=== PATIENT | female | born 1945 | race Caucasian/White ===

== ENCOUNTER 2016-05-27 22:25 | Emergency (ER) | payer BC ==
[~2016-05-27] VITALS: Ht 160 cm; Wt 74.8 kg
[~2016-05-27 22:25] MED LIST: ALLO100T PO; AMLO5TAB2 PO; ATO40T PO; CITA-73 PO; GABA300C8 PO; NOR10T PO; PANT1INJ3 PO; TRAZ50TA2 PO
[2016-05-28 01:28] LABS: Basophils # (auto) 0.1 uL; Basophils % (auto) 0.7 % (0.0-2.0); DEFINITIVE VIEW TRANSMISSION; Eosinophils # (auto) 0.1 uL; Eosinophils % (auto) 1.3 % (0.0-7.0); Hematocrit 23.8 % (36.0-46.0); Hemoglobin 7.6 g/dL (12.2-16.2); Lymphocytes # (auto) 0.5 uL; Lymphocytes % (auto) 5.2 % (10.0-50.0); Mean Corpuscular Hemoglobin 26.6 pg (28.0-32.0); Mean Corpuscular Hgb Conc. 31.9 g/dL (32.0-36.0); Mean Corpuscular Volume 83.4 fL (80.0-100.0); Mean Platelet Volume 6.8 fL (7.4-10.4); Monocytes # (auto) 0.5 uL; Monocytes % (auto) 5.1 % (0.0-12.0); Neutrophils # (auto) 9.2 uL; Neutrophils % (auto) 87.7 % (37.0-80.0); Platelet Count (auto) 415 10^3/uL (140-450); Red Cell Distribution Width 17.1 % (11.6-16.0); White Blood Cell 10.5 10^3/uL (4.4-10.8)
[2016-05-28] MEDS ORDERED: DEXAMETHASONE SOD PHOS 4 MG/1ML SDV INJ IV ONE (01:45)
[2016-05-28 01:48] LABS: Albumin 2.7 g/dL (3.4-5.0); Anion Gap 10 (5-15); Aspartate Aminotransferase 14 U/L (15-37); BUN/Creatinine Ratio 21.6; Blood Urea Nitrogen 43 mg/dL (7-18); Calcium 8.4 mg/dL (8.5-10.1); Carbon Dioxide 20 mmol/L (21-32); Chloride 107 mmol/L (98-107); GFR African American 32 mL/min; GFR Non-African American 26 mL/min; Glucose 151 mg/dL (74-106); Sodium 137 mmol/L (136-145)
[2016-05-28 01:53] LABS: Alkaline Phosphatase 258 U/L (45-117); Bilirubin, Total 0.3 mg/dL (0.2-1.0); Total Protein 7.2 g/dL (6.4-8.2)
[2016-05-28 02:11] LABS: Potassium 5.8 mmol/L (3.5-5.1)
[2016-05-28] MEDS ORDERED: SODIUM POLYSTYRENE SULF 15GM/60ML SUSP PO ONE (02:30)
[2016-05-28 03:34] VITALS: BP 111/59
== END 2016-05-28 03:43 | disposition short-term general hospital (02) ==
LOC: ER 22:37
DX: S02.82XA Fracture of other specified skull and facial bones, left side, initial encounter for closed fracture (principal); S00.81XA Abrasion of other part of head, initial encounter; I60.2 Nontraumatic subarachnoid hemorrhage from anterior communicating artery; M54.5 Low back pain; E11.22 Type 2 diabetes mellitus with diabetic chronic kidney disease; N18.9 Chronic kidney disease, unspecified; I12.9 Hypertensive chronic kidney disease with stage 1 through stage 4 chronic kidney disease, or unspecified chronic kidney disease; I25.2 Old myocardial infarction; I25.10 Atherosclerotic heart disease of native coronary artery without angina pectoris; I25.810 Atherosclerosis of coronary artery bypass graft(s) without angina pectoris; Z79.899 Other long term (current) drug therapy; W19.XXXA Unspecified fall, initial encounter; Y93.89 Activity, other specified; Y92.098 Other place in other non-institutional residence as the place of occurrence of the external cause; Y99.8 Other external cause status
CPT/HCPCS: 36415; 70450; 70486; 80053; 84484; 85025; 96374; 99285; J1100

== ENCOUNTER 2016-08-01 18:29 | Inpatient (IN) | payer BC ==
[~2016-08-01] VITALS: Ht 157.5 cm; Wt 71.5 kg
[~2016-08-01 18:29] MED LIST changes: +GABA-497 PO; -GABA300C8 PO
[2016-08-01] MEDS ORDERED: SODIUM CHLORIDE 0.9% 1,000 ML IV ONE ×2 (20:32→21:45)
[2016-08-01 21:39] LABS: Basophils # (auto) 0 uL; Basophils % (auto) 0.3 % (0.0-2.0); Eosinophils # (auto) 0 uL; Eosinophils % (auto) 0.2 % (0.0-7.0); Hematocrit 26.2 % (36.0-46.0); Hemoglobin 8.8 g/dL (12.2-16.2); Lymphocytes # (auto) 0.5 uL; Lymphocytes % (auto) 5.6 % (10.0-50.0); Mean Corpuscular Hemoglobin 27.4 pg (28.0-32.0); Mean Corpuscular Hgb Conc. 33.7 g/dL (32.0-36.0); Mean Corpuscular Volume 81.5 fL (80.0-100.0); Mean Platelet Volume 9.5 fL (7.4-10.4); Monocytes # (auto) 0.4 uL; Monocytes % (auto) 4.6 % (0.0-12.0); Neutrophils # (auto) 7.3 uL; Neutrophils % (auto) 89.3 % (37.0-80.0); Platelet Count (auto) 341 10^3/uL (140-450); Red Cell Distribution Width 18.6 % (11.6-16.0); White Blood Cell 8.2 10^3/uL (4.4-10.8)
[2016-08-01] MEDS ORDERED: MORPHINE SULF INJ 2 MG/ML SYRINGE 1ML IV PRN (21:45)
[2016-08-01] MEDS ORDERED: ONDANSETRON HCL 4 MG/2 ML VIAL IV PRN (21:45)
[2016-08-01] MEDS ORDERED: DEXTROSE (50%) 50ML SYRG IV PRN (21:45)
[2016-08-01] MEDS ORDERED: PANTOPRAZOLE SODIUM 40 MG/10 ML VIAL IV ONE (22:00)
[2016-08-01] MEDS: SODIUM CHLORIDE 0.9% 1,000 ML IV SCH (22:30)
[2016-08-01 22:41] LABS: INR 1.01 (0.9-1.15); Partial Thromboplastin Time 27.6 sec (22.64-33.71)
[2016-08-01] MEDS: GABAPENTIN 400 MG CAP PO SCH (23:00)
[2016-08-01] MEDS: MIRTAZAPINE 30 MG TAB PO SCH (23:00)
[2016-08-01] MEDS: SUCRALFATE 1 GM TAB PO SCH (23:00)
[2016-08-01] MEDS: traZODone HCL 50 MG TAB PO SCH (23:00)
[2016-08-01 23:02] LABS: Albumin 3.4 g/dL (3.4-5.0); Alkaline Phosphatase 179 U/L (45-117); Anion Gap 8 (5-15); Aspartate Aminotransferase 27 U/L (15-37); BUN/Creatinine Ratio 36.2; Bilirubin, Total 0.3 mg/dL (0.2-1.0); Blood Urea Nitrogen 54 mg/dL (7-18); Calcium 8.7 mg/dL (8.5-10.1); Carbon Dioxide 18 mmol/L (21-32); Chloride 112 mmol/L (98-107); GFR African American 44 mL/min; GFR Non-African American 37 mL/min; Glucose 146 mg/dL (74-106); Magnesium 2.3 mg/dL (1.6-2.6); Potassium 4.7 mmol/L (3.5-5.1); Sodium 138 mmol/L (136-145); Total Protein 7.2 g/dL (6.4-8.2)
[2016-08-01] MEDS: InsuLIN REG 1unit/0.01ml Soln (100units/ml) SC SCH (23:42)
[2016-08-01] MEDS: ACCU-CHEK COMFORT CURVE STRIP VI SCH (23:42)
[2016-08-02] VITALS: BP 115/56
[2016-08-02 05:17] VITALS: BP 116/59
[2016-08-02] MEDS: GABAPENTIN 400 MG CAP PO SCH ×3 (05:58→21:50)
[2016-08-02] MEDS: InsuLIN REG 1unit/0.01ml Soln (100units/ml) SC SCH ×3 (05:58→18:32)
[2016-08-02] MEDS: ACCU-CHEK COMFORT CURVE STRIP VI SCH ×3 (05:58→18:31)
[2016-08-02] MEDS: SUCRALFATE 1 GM TAB PO SCH ×4 (06:48→21:50)
[2016-08-02 08:50] VITALS: BP 104/58
[2016-08-02] MEDS: SERTRALINE HCL 50 MG TAB PO SCH (10:50)
[2016-08-02] MEDS: PANTOPRAZOLE SODIUM 40 MG/10 ML VIAL IV SCH (10:50)
[2016-08-02] MEDS: amLODIPine BESYLATE 5 MG TAB PO SCH (10:51)
[2016-08-02] MEDS: SODIUM CHLORIDE 0.9% 1,000 ML IV SCH (11:05)
[2016-08-02 13:00] VITALS: BP 121/51
[2016-08-02 14:41] LABS: Urine RBC None Seen /hpf (0 - 4)
[2016-08-02 14:52] LABS: Urine Bilirubin Negative (Negative); Urine Color Yellow (Yellow); Urine Glucose Normal (Normal); Urine Ketone Negative (Negative); Urine Urobilinogen Normal (Negative); Urine WBC Clumps PRESENT /hpf (None Seen)
[2016-08-02 15:06] LABS: Urine Blood 2+ /uL (Negative); Urine Nitrite POSITIVE (Negative); Urine Squamous Epithelial Cell FEW /hpf (<5)
[2016-08-02 16:51] VITALS: BP 106/56
[2016-08-02] MEDS: HYDROcodone-ACET 5/325MG TAB PO PRN ×2 (17:01→21:50)
[2016-08-02] MEDS: traZODone HCL 50 MG TAB PO SCH (21:50)
[2016-08-02] MEDS: MIRTAZAPINE 30 MG TAB PO SCH (21:50)
[2016-08-02 22:00] VITALS: BP 99/60
[2016-08-03] MEDS: SODIUM CHLORIDE 0.9% 1,000 ML IV SCH ×2 (00:01→13:47)
[2016-08-03] MEDS: ACCU-CHEK COMFORT CURVE STRIP VI SCH ×4 (00:01→17:55)
[2016-08-03] MEDS: InsuLIN REG 1unit/0.01ml Soln (100units/ml) SC SCH ×4 (06:00→17:56)
[2016-08-03 06:02] VITALS: BP 118/64
[2016-08-03] MEDS: SUCRALFATE 1 GM TAB PO SCH ×3 (06:28→17:31)
[2016-08-03] MEDS: GABAPENTIN 400 MG CAP PO SCH ×2 (06:28→13:49)
[2016-08-03] MEDS: HYDROcodone-ACET 5/325MG TAB PO PRN ×3 (06:29→18:02)
[2016-08-03 08:00] VITALS: BP 114/57
[2016-08-03] MEDS: MORPHINE SULF INJ 2 MG/ML SYRINGE 1ML IV PRN ×2 (08:29→14:35)
[2016-08-03 08:55] VITALS: BP 114/57
[2016-08-03] MEDS: SERTRALINE HCL 50 MG TAB PO SCH (10:07)
[2016-08-03] MEDS: PANTOPRAZOLE SODIUM 40 MG/10 ML VIAL IV SCH (10:07)
[2016-08-03] MEDS: amLODIPine BESYLATE 5 MG TAB PO SCH (10:08)
[2016-08-03 13:00] VITALS: BP 124/74
[2016-08-03] MEDS ORDERED: IBUP800T24 PO (13:35)
[2016-08-03] MEDS ORDERED: CEL100T PO (13:35)
[2016-08-03] MEDS ORDERED: PANT40T PO (13:35)
[2016-08-03] MEDS ORDERED: GABA-497 PO (13:35)
[2016-08-03] MEDS ORDERED: CIPR-217 PO (13:38)
[2016-08-03] MEDS ORDERED: LEVOFLOXACIN 750MG 150 ML IV ONE (13:45)
[2016-08-03 15:45] VITALS: BP 114/57
[2016-08-03 17:00] VITALS: BP 120/70
[2016-08-03] MEDS ORDERED: ATORVASTATIN 20 MG TAB PO SCH (22:00)
== END 2016-08-03 19:45 | disposition home or self-care (01) | DRG 563 ==
LOC: EDUNIT# 18:29 → EDBD 18:29 → ER 18:32 → OVERFLOW 18:33 → WEST WING 23:32
PROVIDERS: ADMIT Family Medicine; ATTEND Hospitalist
DX: S42.212A Unspecified displaced fracture of surgical neck of left humerus, initial encounter for closed fracture (principal); I13.0 Hypertensive heart and chronic kidney disease with heart failure and stage 1 through stage 4 chronic kidney disease, or unspecified chronic kidney disease; F11.20 Opioid dependence, uncomplicated; N39.0 Urinary tract infection, site not specified; I25.10 Atherosclerotic heart disease of native coronary artery without angina pectoris; E78.5 Hyperlipidemia, unspecified; I50.9 Heart failure, unspecified; D64.9 Anemia, unspecified; E11.22 Type 2 diabetes mellitus with diabetic chronic kidney disease; E78.00 Pure hypercholesterolemia, unspecified; G47.00 Insomnia, unspecified; G89.4 Chronic pain syndrome; M10.9 Gout, unspecified; N18.2 Chronic kidney disease, stage 2 (mild); W01.0XXA Fall on same level from slipping, tripping and stumbling without subsequent striking against object, initial encounter; Z95.1 Presence of aortocoronary bypass graft; I25.2 Old myocardial infarction; Y93.89 Activity, other specified; Y92.098 Other place in other non-institutional residence as the place of occurrence of the external cause; Y99.8 Other external cause status; Z90.49 Acquired absence of other specified parts of digestive tract; Z90.710 Acquired absence of both cervix and uterus
CPT/HCPCS: 36415; 70450; 73030; 80053; 81001; 82962; 83036; 83735; 84484; 85025; 85610; 85730; 86850; 86870; 86900; 86901; 87081; 93005; 93306; 94761; 96374; C9113; J1815; J1956

== ENCOUNTER 2016-10-07 04:34 | Inpatient (IN) | payer BC ==
[~2016-10-07] VITALS: Ht 157.5 cm; Wt 68.4 kg
[~2016-10-07 04:34] MED LIST changes: +CEL100T PO; +CIPR-217 PO; -NOR10T PO; -PANT1INJ3 PO; +PANT40T PO; -TRAZ50TA2 PO
[2016-10-07] MEDS ORDERED: SODIUM CHLORIDE 0.9% 500 ML IV ONE (06:00)
[2016-10-07 06:17] LABS: Basophils # (auto) 0 uL; Basophils % (auto) 0.3 % (0.0-2.0); CONDITION Y; Eosinophils # (auto) 0.2 uL; Eosinophils % (auto) 1.6 % (0.0-7.0); Hematocrit 32.1 % (36.0-46.0); Lymphocytes # (auto) 0.5 uL; Lymphocytes % (auto) 5.5 % (10.0-50.0); Mean Corpuscular Hemoglobin 29.3 pg (28.0-32.0); Mean Corpuscular Hgb Conc. 34.2 g/dL (32.0-36.0); Mean Corpuscular Volume 85.7 fL (80.0-100.0); Mean Platelet Volume 8.7 fL (7.4-10.4); Monocytes # (auto) 0.5 uL; Monocytes % (auto) 5.2 % (0.0-12.0); Neutrophils # (auto) 8.7 uL; Neutrophils % (auto) 87.4 % (37.0-80.0); Platelet Count (auto) 325 10^3/uL (140-450); Red Cell Distribution Width 16.7 % (11.6-16.0)
[2016-10-07 06:28] LABS: Prothrombin Time 10.9 sec (9.37-12.3)
[2016-10-07 06:45] LABS: Urine Bilirubin Negative (Negative); Urine Blood TRACE /uL (Negative); Urine Color PINK (Yellow); Urine Glucose Normal (Normal); Urine Granular Cast MOD /lpf (0); Urine Hyaline Cast MANY /lpf (0 - 2); Urine Ketone Negative (Negative); Urine Mucus FEW (None Seen); Urine Nitrite Negative (Negative); Urine RBC 9 /hpf (0 - 4); Urine Squamous Epithelial Cell MANY /hpf (<5)
[2016-10-07 06:49] LABS: Chloride 106 mmol/L (98-107); Potassium 4.8 mmol/L (3.5-5.1); Sodium 136 mmol/L (136-145)
[2016-10-07 06:54] LABS: Albumin 3.7 g/dL (3.4-5.0); Anion Gap 13 (5-15); Aspartate Aminotransferase 11 U/L (15-37); BUN/Creatinine Ratio 17.6; Blood Urea Nitrogen 48 mg/dL (7-18); Calcium 8.8 mg/dL (8.5-10.1); Carbon Dioxide 17 mmol/L (21-32); GFR African American 22 mL/min; GFR Non-African American 18 mL/min; Glucose 156 mg/dL (74-106)
[2016-10-07 06:58] LABS: Alkaline Phosphatase 224 U/L (45-117); Bilirubin, Total 0.2 mg/dL (0.2-1.0)
[2016-10-07] MEDS ORDERED: cefTRIAXone 1GM/50ML D5W 50 ML IV ONE (07:00)
[2016-10-07] MEDS ORDERED: SODIUM CHLORIDE 0.9% 1,000 ML IV ONE (07:30)
[2016-10-07] MEDS ORDERED: DEXTROSE (50%) 50ML SYRG IV PRN (07:30)
[2016-10-07] MEDS ORDERED: ONDANSETRON HCL 4 MG/2 ML VIAL IV PRN (07:45)
[2016-10-07] MEDS ORDERED: MORPHINE SULF INJ 2 MG/ML SYRINGE 1ML IV PRN (07:45)
[2016-10-07] MEDS ORDERED: LACTULOSE 20Gm/30ML SOLN PO PRN (07:45)
[2016-10-07] MEDS ORDERED: NITROGLYCERIN 0.4 MG SL TAB SL PRN (07:45)
[2016-10-07 09:59] VITALS: BP 99/58
[2016-10-07] MEDS: amLODIPine BESYLATE 5 MG TAB PO SCH (10:00)
[2016-10-07] MEDS: GABAPENTIN 400 MG CAP PO SCH ×2 (10:14→21:23)
[2016-10-07] MEDS: PANTOPRAZOLE 40 MG/10 ML VIAL IV SCH (10:14)
[2016-10-07] MEDS: ENOXAPARIN SOD 30 MG/0.3 ML SYRINGE SC SCH (10:14)
[2016-10-07] MEDS: HYDROcodone-ACET 5/325MG TAB PO PRN ×2 (10:15→17:26)
[2016-10-07] MEDS: CELECOXIB 100 MG CAP PO SCH ×2 (10:15→21:23)
[2016-10-07] MEDS: SERTRALINE HCL 50 MG TAB PO SCH (10:15)
[2016-10-07] MEDS: SUCRALFATE 1 GM TAB PO SCH ×3 (11:30→21:23)
[2016-10-07] MEDS: InsuLIN REG 1unit/0.01ml Soln (100units/ml) SC SCH ×2 (12:00→18:00)
[2016-10-07] MEDS: ACCU-CHEK COMFORT CURVE STRIP VI SCH ×2 (12:00→18:00)
[2016-10-07 18:02] VITALS: BP 85/52
[2016-10-07 18:24] LABS: Calcium 8.2 mg/dL (8.5-10.1); Magnesium 2.3 mg/dL (1.6-2.6); Potassium 4.5 mmol/L (3.5-5.1)
[2016-10-07 18:28] LABS: BUN/Creatinine Ratio 25.8
[2016-10-07 22:00] VITALS: BP 107/50
[2016-10-07] MEDS ORDERED: traZODone HCL 50 MG TAB PO SCH (22:00)
[2016-10-07] MEDS ORDERED: MIRTAZAPINE 30 MG TAB PO SCH (22:00)
[2016-10-08] MEDS: ACCU-CHEK COMFORT CURVE STRIP VI SCH ×4 (00:15→17:27)
[2016-10-08] MEDS: HYDROcodone-ACET 5/325MG TAB PO PRN ×3 (04:12→17:21)
[2016-10-08 05:00] VITALS: BP 126/46
[2016-10-08 05:24] LABS: CONDITION Y; Hematocrit 30.6 % (36.0-46.0); Hemoglobin 10.3 g/dL (12.2-16.2); Mean Corpuscular Hemoglobin 28.7 pg (28.0-32.0); Mean Corpuscular Hgb Conc. 33.5 g/dL (32.0-36.0); Mean Corpuscular Volume 85.8 fL (80.0-100.0); Mean Platelet Volume 9.5 fL (7.4-10.4); Platelet Count (auto) 197 10^3/uL (140-450); Red Cell Distribution Width 16.7 % (11.6-16.0); SUSPECT SEE PRINTOUT; White Blood Cell 7.1 10^3/uL (4.4-10.8)
[2016-10-08 05:53] LABS: Albumin 2.6 g/dL (3.4-5.0); BUN/Creatinine Ratio 31.8; Calcium 8.2 mg/dL (8.5-10.1); Magnesium 2.2 mg/dL (1.6-2.6); Potassium 4.9 mmol/L (3.5-5.1)
[2016-10-08 05:55] LABS: Bilirubin, Total 0.2 mg/dL (0.2-1.0); Total Protein 6.2 g/dL (6.4-8.2)
[2016-10-08] MEDS: InsuLIN REG 1unit/0.01ml Soln (100units/ml) SC SCH ×4 (06:00→17:27)
[2016-10-08] MEDS: SUCRALFATE 1 GM TAB PO SCH ×3 (06:32→17:21)
[2016-10-08 07:00] LABS: Metamyelocytes % 0; Myelocytes % 0; Promyelocytes % 0; Reactive Lymphocytes 0
[2016-10-08] MEDS ORDERED: cefTRIAXone 1GM/50ML D5W 50 ML IV SCH (07:00)
[2016-10-08 07:04] LABS: Platelet Estimate Adequate
[2016-10-08 08:23] VITALS: BP 102/48
[2016-10-08] MEDS: PANTOPRAZOLE 40 MG/10 ML VIAL IV SCH (09:17)
[2016-10-08] MEDS: ENOXAPARIN SOD 30 MG/0.3 ML SYRINGE SC SCH (09:17)
[2016-10-08] MEDS: CELECOXIB 100 MG CAP PO SCH (09:18)
[2016-10-08] MEDS: SERTRALINE HCL 50 MG TAB PO SCH (09:18)
[2016-10-08] MEDS: GABAPENTIN 400 MG CAP PO SCH (09:18)
[2016-10-08] MEDS: amLODIPine BESYLATE 5 MG TAB PO SCH (09:20)
[2016-10-08] MEDS ORDERED: MUPIROCIN 2% OINT 22GM EACHNOSTRI SCH (10:33)
[2016-10-08 12:29] VITALS: BP 104/58
[2016-10-08 17:05] VITALS: BP 150/59
== END 2016-10-08 20:40 | DRG 683 ==
LOC: EDBD 04:34 → ER 04:37 → TELE 04:38 → TELE-E-ADS 09:37 → TELE-WESTW 11:23
PROVIDERS: ADMIT Family Medicine; ATTEND Family Medicine
DX: N17.9 Acute kidney failure, unspecified (principal); N39.0 Urinary tract infection, site not specified; I13.0 Hypertensive heart and chronic kidney disease with heart failure and stage 1 through stage 4 chronic kidney disease, or unspecified chronic kidney disease; E11.42 Type 2 diabetes mellitus with diabetic polyneuropathy; I50.9 Heart failure, unspecified; F32.9 Major depressive disorder, single episode, unspecified; N13.30 Unspecified hydronephrosis; G89.29 Other chronic pain; I25.10 Atherosclerotic heart disease of native coronary artery without angina pectoris; N18.9 Chronic kidney disease, unspecified; K21.9 Gastro-esophageal reflux disease without esophagitis; M10.9 Gout, unspecified; M25.511 Pain in right shoulder; M25.521 Pain in right elbow; Z79.899 Other long term (current) drug therapy; Z87.442 Personal history of urinary calculi; Z95.1 Presence of aortocoronary bypass graft; Z90.49 Acquired absence of other specified parts of digestive tract; Z90.710 Acquired absence of both cervix and uterus; I25.2 Old myocardial infarction
CPT/HCPCS: 36415; 70450; 71010; 73080; 76775; 80048; 80053; 81001; 82962; 83036; 83735; 84484; 85007; 85025; 85027; 85610; 85730; 87081; 93005; 94761; 96361; 96365; 97116; 97530; C9113; J0696; J1815

== ENCOUNTER 2016-10-28 20:08 | Emergency (ER) | payer BC ==
[~2016-10-28] VITALS: Ht 157.5 cm; Wt 63.5 kg
[~2016-10-28 20:08] MED LIST changes: -CIPR-217 PO; +HYDR-531 PO
[2016-10-28 20:20] VITALS: BP 144/80
[2016-10-28] MEDS ORDERED: ACETAMINOPHEN 325 MG TAB PO ONE ×2 (20:45)
[2016-10-28 21:11] LABS: Basophils # (auto) 0 uL; CONDITION Y; Eosinophils # (auto) 0.1 uL; Hematocrit 27.1 % (36.0-46.0); Hemoglobin 8.8 g/dL (12.2-16.2); Lymphocytes # (auto) 0.4 uL; Lymphocytes % (auto) 4.3 % (10.0-50.0); Mean Corpuscular Hemoglobin 27.3 pg (28.0-32.0); Mean Corpuscular Hgb Conc. 32.5 g/dL (32.0-36.0); Mean Corpuscular Volume 83.9 fL (80.0-100.0); Mean Platelet Volume 7.5 fL (7.4-10.4); Monocytes # (auto) 0.5 uL; Monocytes % (auto) 4.7 % (0.0-12.0); Platelet Count (auto) 479 10^3/uL (140-450); White Blood Cell 9.9 10^3/uL (4.4-10.8)
[2016-10-28 21:43] LABS: Albumin 2.6 g/dL (3.4-5.0); Alkaline Phosphatase 242 U/L (45-117); Anion Gap 11 (5-15); Aspartate Aminotransferase 5 U/L (15-37); BUN/Creatinine Ratio 30.8; Bilirubin, Total 0.5 mg/dL (0.2-1.0); Blood Urea Nitrogen 28 mg/dL (7-18); Calcium 9.3 mg/dL (8.5-10.1); Carbon Dioxide 20 mmol/L (21-32); Chloride 104 mmol/L (98-107); GFR African American 79 mL/min; GFR Non-African American 65 mL/min; Glucose 148 mg/dL (74-106); Magnesium 2.2 mg/dL (1.6-2.6); Potassium 4.1 mmol/L (3.5-5.1); Sodium 135 mmol/L (136-145); Total Protein 7.8 g/dL (6.4-8.2)
== END 2016-10-28 22:50 | disposition left against medical advice (07) ==
LOC: ER 20:17
DX: M79.602 Pain in left arm (principal); R53.1 Weakness; Z53.21 Procedure and treatment not carried out due to patient leaving prior to being seen by health care provider
CPT/HCPCS: 36415; 80053; 83605; 83735; 84484; 85025; 87040; 87077; 87186; 93005

== ENCOUNTER 2016-10-29 16:04 | Inpatient (IN) | payer BC ==
[~2016-10-29] VITALS: Ht 157.5 cm; Wt 64.5 kg
[2016-10-29] MEDS ORDERED: SODIUM CHLORIDE 0.9% 1,000 ML IV ONE (16:33)
[2016-10-29 17:09] LABS: Basophils # (auto) 0 uL; Basophils % (auto) 0.4 % (0.0-2.0); CONDITION Y; DEFINITIVE SEE PRINTOUT; Eosinophils # (auto) 0.1 uL; Hematocrit 25.2 % (36.0-46.0); Hemoglobin 8.3 g/dL (12.2-16.2); Lymphocytes # (auto) 0.6 uL; Lymphocytes % (auto) 7.9 % (10.0-50.0); Mean Corpuscular Hemoglobin 27.4 pg (28.0-32.0); Mean Corpuscular Hgb Conc. 32.8 g/dL (32.0-36.0); Mean Corpuscular Volume 83.5 fL (80.0-100.0); Mean Platelet Volume 7.4 fL (7.4-10.4); Monocytes # (auto) 0.6 uL; Monocytes % (auto) 8.3 % (0.0-12.0); Neutrophils # (auto) 5.9 uL; Neutrophils % (auto) 82.4 % (37.0-80.0); Platelet Count (auto) 408 10^3/uL (140-450); Red Cell Distribution Width 16.1 % (11.6-16.0); White Blood Cell 7.2 10^3/uL (4.4-10.8)
[2016-10-29 17:27] LABS: Albumin 2.5 g/dL (3.4-5.0); Anion Gap 11 (5-15); Aspartate Aminotransferase 7 U/L (15-37); BUN/Creatinine Ratio 24.3; Blood Urea Nitrogen 25 mg/dL (7-18); Calcium 9.1 mg/dL (8.5-10.1); Carbon Dioxide 20 mmol/L (21-32); Chloride 108 mmol/L (98-107); GFR African American 68 mL/min; GFR Non-African American 56 mL/min; Glucose 145 mg/dL (74-106); Magnesium 2.1 mg/dL (1.6-2.6); Potassium 3.9 mmol/L (3.5-5.1); Sodium 139 mmol/L (136-145)
[2016-10-29 17:32] LABS: Alkaline Phosphatase 218 U/L (45-117); Bilirubin, Total 0.4 mg/dL (0.2-1.0); Total Protein 7.3 g/dL (6.4-8.2)
[2016-10-29] MEDS ORDERED: KETOROLAC TROMETH 30 MG/ML 1ML VIAL IV ONE (17:45)
[2016-10-29] MEDS ORDERED: IOHEXOL 350 MG/ML 100ML IJ ONE (18:00)
[2016-10-29] MEDS ORDERED: PROMETHAZINE HCL 25 MG/ML 1ML IV ONE (18:45)
[2016-10-29] MEDS ORDERED: MORPHINE SULF INJ 2 MG/ML SYRINGE 1ML IV ONE (18:45)
[2016-10-29 19:06] LABS: Urine Bilirubin Negative (Negative); Urine Blood Negative /uL (Negative); Urine Color Yellow (Yellow); Urine Glucose Normal (Normal); Urine Ketone Negative (Negative); Urine Mucus FEW (None Seen); Urine Nitrite POSITIVE (Negative); Urine RBC 2 /hpf (0 - 4); Urine Squamous Epithelial Cell FEW /hpf (<5); Urine Urobilinogen Normal (Negative)
[2016-10-29] MEDS ORDERED: cefTRIAXone 1GM/50ML D5W 50 ML IV ONE (20:30)
[2016-10-29] MEDS ORDERED: ONDANSETRON HCL 4 MG/2 ML VIAL IV PRN (21:45)
[2016-10-29] MEDS ORDERED: DEXTROSE (50%) 50ML SYRG IV PRN (21:45)
[2016-10-29] MEDS ORDERED: LACTULOSE 20Gm/30ML SOLN PO PRN (21:45)
[2016-10-29] MEDS ORDERED: ENOXAPARIN SOD 60 MG/0.6 ML SYRINGE SC ONE (21:45)
[2016-10-29] MEDS ORDERED: HYDROcodone-ACET 5/325MG TAB PO PRN (21:45)
[2016-10-29] MEDS ORDERED: ACETAMINOPHEN 500 MG TAB PO PRN (21:45)
[2016-10-29] MEDS ORDERED: TEMAZEPAM 15 MG CAP PO PRN (21:45)
[2016-10-29] MEDS: InsuLIN REG 1unit/0.01ml Soln (100units/ml) SC SCH (22:00)
[2016-10-29] MEDS ORDERED: MORPHINE SULF INJ 2 MG/ML SYRINGE 1ML IV PRN (22:30)
[2016-10-29] MEDS ORDERED: NITROGLYCERIN 0.4 MG SL TAB SL PRN (22:30)
[2016-10-29] MEDS: CELECOXIB 100 MG CAP PO SCH (22:49)
[2016-10-29] MEDS: ATORVASTATIN 20 MG TAB PO SCH (22:49)
[2016-10-29] MEDS: ACCU-CHEK COMFORT CURVE STRIP VI SCH (22:50)
[2016-10-29] MEDS: GABAPENTIN 300 MG CAP PO SCH (22:50)
[2016-10-29] MEDS: HYDROmorphone HCL 2 MG/ML VL IV PRN (22:54)
[2016-10-30] VITALS (8 sets, daily range): BP systolic 93–121; BP diastolic 46–60
[2016-10-30] MEDS: HYDROmorphone HCL 2 MG/ML VL IV PRN ×6 (03:00→23:27)
[2016-10-30 06:18] LABS: Basophils # (auto) 0 uL; Basophils % (auto) 0.2 % (0.0-2.0); CONDITION Y; DEFINITIVE SEE PRINTOUT; Eosinophils # (auto) 0.1 uL; Eosinophils % (auto) 1.5 % (0.0-7.0); Hematocrit 24.5 % (36.0-46.0); Hemoglobin 7.9 g/dL (12.2-16.2); Lymphocytes # (auto) 0.5 uL; Lymphocytes % (auto) 6.7 % (10.0-50.0); Mean Corpuscular Hemoglobin 27.2 pg (28.0-32.0); Mean Corpuscular Hgb Conc. 32.1 g/dL (32.0-36.0); Mean Corpuscular Volume 84.6 fL (80.0-100.0); Mean Platelet Volume 7.7 fL (7.4-10.4); Monocytes # (auto) 0.5 uL; Monocytes % (auto) 7.4 % (0.0-12.0); Neutrophils % (auto) 84.2 % (37.0-80.0); Platelet Count (auto) 419 10^3/uL (140-450); Red Cell Distribution Width 16.6 % (11.6-16.0); White Blood Cell 7.2 10^3/uL (4.4-10.8)
[2016-10-30] MEDS: GABAPENTIN 300 MG CAP PO SCH ×3 (06:36→21:43)
[2016-10-30] MEDS: glipiZIDE 5 MG TAB PO SCH (06:37)
[2016-10-30] MEDS: LEVOTHYROXINE SODIUM 50 MCG TAB PO SCH (06:37)
[2016-10-30] MEDS: ACCU-CHEK COMFORT CURVE STRIP VI SCH ×4 (06:37→22:00)
[2016-10-30] MEDS: InsuLIN REG 1unit/0.01ml Soln (100units/ml) SC SCH ×4 (06:38→22:00)
[2016-10-30 07:09] LABS: Potassium 3.7 mmol/L (3.5-5.1)
[2016-10-30 07:17] LABS: Albumin 2.1 g/dL (3.4-5.0); BUN/Creatinine Ratio 24.1; Calcium 8.5 mg/dL (8.5-10.1)
[2016-10-30 07:19] LABS: Bilirubin, Total 0.3 mg/dL (0.2-1.0); Total Protein 6.4 g/dL (6.4-8.2)
[2016-10-30] MEDS: APIXABAN 5 MG TAB PO SCH ×2 (09:34→21:42)
[2016-10-30] MEDS: CELECOXIB 100 MG CAP PO SCH ×2 (09:34→21:41)
[2016-10-30] MEDS: amLODIPine BESYLATE 5 MG TAB PO SCH (09:35)
[2016-10-30] MEDS: HYDROcodone-ACET 10/325MG TAB PO PRN ×3 (13:44→21:44)
[2016-10-30] MEDS ORDERED: VANCOMYCIN 1GM/250ML D5W 250 ML IV ONE (14:00)
[2016-10-30] MEDS ORDERED: VANCOMYCIN PER PHARMACY 0 MG IV SCH (14:00)
[2016-10-30] MEDS: cefTRIAXone 1GM/50ML D5W 50 ML IV SCH (21:39)
[2016-10-30] MEDS: ATORVASTATIN 20 MG TAB PO SCH (21:43)
[2016-10-31] MEDS: VANCOMYCIN 1GM/250ML D5W 250 ML IV SCH ×2 (01:41→14:00)
[2016-10-31] MEDS: HYDROmorphone HCL 2 MG/ML VL IV PRN ×3 (05:21→22:18)
[2016-10-31 05:25] LABS: Basophils # (auto) 0 uL; Basophils % (auto) 0.1 % (0.0-2.0); CONDITION Y; DEFINITIVE SEE PRINTOUT; Eosinophils # (auto) 0.1 uL; Eosinophils % (auto) 1.6 % (0.0-7.0); Hematocrit 25.5 % (36.0-46.0); Hemoglobin 8.3 g/dL (12.2-16.2); Lymphocytes # (auto) 0.4 uL; Lymphocytes % (auto) 4.7 % (10.0-50.0); Mean Corpuscular Hemoglobin 27.4 pg (28.0-32.0); Mean Corpuscular Hgb Conc. 32.6 g/dL (32.0-36.0); Mean Corpuscular Volume 84.2 fL (80.0-100.0); Mean Platelet Volume 7.5 fL (7.4-10.4); Monocytes # (auto) 0.5 uL; Monocytes % (auto) 6.1 % (0.0-12.0); Neutrophils # (auto) 7.5 uL; Neutrophils % (auto) 87.5 % (37.0-80.0); Platelet Count (auto) 459 10^3/uL (140-450); Red Cell Distribution Width 15.9 % (11.6-16.0); White Blood Cell 8.6 10^3/uL (4.4-10.8)
[2016-10-31 05:48] LABS: BUN/Creatinine Ratio 20.5; Calcium 8.6 mg/dL (8.5-10.1); Potassium 3.7 mmol/L (3.5-5.1)
[2016-10-31] MEDS: GABAPENTIN 300 MG CAP PO SCH ×3 (06:07→21:59)
[2016-10-31] MEDS: ACCU-CHEK COMFORT CURVE STRIP VI SCH ×4 (06:43→21:59)
[2016-10-31] MEDS: LEVOTHYROXINE SODIUM 50 MCG TAB PO SCH (06:43)
[2016-10-31] MEDS: glipiZIDE 5 MG TAB PO SCH (06:43)
[2016-10-31] MEDS: InsuLIN REG 1unit/0.01ml Soln (100units/ml) SC SCH ×4 (06:44→22:00)
[2016-10-31 08:00] VITALS: BP 107/47
[2016-10-31] MEDS: HYDROcodone-ACET 10/325MG TAB PO PRN ×2 (08:40→12:11)
[2016-10-31 09:00] VITALS: BP 107/47
[2016-10-31] MEDS: CELECOXIB 100 MG CAP PO SCH ×2 (10:56→21:59)
[2016-10-31] MEDS: APIXABAN 5 MG TAB PO SCH ×2 (10:57→21:59)
[2016-10-31] MEDS: amLODIPine BESYLATE 5 MG TAB PO SCH (10:57)
[2016-10-31 13:00] VITALS: BP 141/53
[2016-10-31] MEDS ORDERED: OXYCODONE W/ ACETAMINOPHEN 5/325MG TABLET PO PRN (16:15)
[2016-10-31] MEDS: OXYCODONE W/ ACETAMINOPHEN 5/325MG TABLET PO PRN ×2 (16:30→20:38)
[2016-10-31 16:47] VITALS: BP 105/55
[2016-10-31] MEDS: cefTRIAXone 1GM/50ML D5W 50 ML IV SCH (21:59)
[2016-10-31] MEDS: ATORVASTATIN 20 MG TAB PO SCH (21:59)
[2016-10-31 22:16] VITALS: BP 138/82
[2016-11-01] MEDS: OXYCODONE W/ ACETAMINOPHEN 5/325MG TABLET PO PRN ×5 (01:02→23:29)
[2016-11-01] MEDS: VANCOMYCIN 1GM/250ML D5W 250 ML IV SCH ×2 (01:40→14:10)
[2016-11-01] MEDS: HYDROmorphone HCL 2 MG/ML VL IV PRN ×4 (04:21→21:42)
[2016-11-01 05:24] VITALS: BP 100/67
[2016-11-01 06:11] LABS: Calcium 8.4 mg/dL (8.5-10.1); Potassium 3.7 mmol/L (3.5-5.1)
[2016-11-01] MEDS: glipiZIDE 5 MG TAB PO SCH (06:13)
[2016-11-01] MEDS: LEVOTHYROXINE SODIUM 50 MCG TAB PO SCH (06:13)
[2016-11-01] MEDS: GABAPENTIN 300 MG CAP PO SCH ×3 (06:13→21:35)
[2016-11-01 06:14] LABS: BUN/Creatinine Ratio 20.3
[2016-11-01] MEDS: ACCU-CHEK COMFORT CURVE STRIP VI SCH ×4 (06:14→21:35)
[2016-11-01] MEDS: InsuLIN REG 1unit/0.01ml Soln (100units/ml) SC SCH ×4 (06:14→22:00)
[2016-11-01 07:30] VITALS: BP 107/47
[2016-11-01 09:00] VITALS: BP 113/58
[2016-11-01] MEDS: APIXABAN 5 MG TAB PO SCH ×2 (12:05→21:34)
[2016-11-01] MEDS: amLODIPine BESYLATE 5 MG TAB PO SCH (12:05)
[2016-11-01] MEDS: CELECOXIB 100 MG CAP PO SCH ×2 (12:05→21:34)
[2016-11-01] MEDS ORDERED: LORazepam 2MG/ML-1ML VIAL IV ONE (14:30)
[2016-11-01 14:52] VITALS: BP 141/70
[2016-11-01 16:57] VITALS: BP 122/70
[2016-11-01] MEDS: cefTRIAXone 1GM/50ML D5W 50 ML IV SCH (21:34)
[2016-11-01] MEDS: ATORVASTATIN 20 MG TAB PO SCH (21:35)
[2016-11-01 22:00] VITALS: BP 117/63
[2016-11-02] MEDS: HYDROmorphone HCL 2 MG/ML VL IV PRN ×6 (02:04→22:02)
[2016-11-02] MEDS: VANCOMYCIN 1GM/250ML D5W 250 ML IV SCH ×2 (02:04→14:01)
[2016-11-02 05:00] VITALS: BP 140/86
[2016-11-02] MEDS: GABAPENTIN 300 MG CAP PO SCH ×2 (06:08→14:07)
[2016-11-02] MEDS: glipiZIDE 5 MG TAB PO SCH (06:09)
[2016-11-02] MEDS: ACCU-CHEK COMFORT CURVE STRIP VI SCH ×3 (06:09→17:02)
[2016-11-02] MEDS: LEVOTHYROXINE SODIUM 50 MCG TAB PO SCH (06:09)
[2016-11-02] MEDS: InsuLIN REG 1unit/0.01ml Soln (100units/ml) SC SCH ×3 (06:09→17:04)
[2016-11-02 08:00] VITALS: BP 113/58
[2016-11-02] MEDS: OXYCODONE W/ ACETAMINOPHEN 5/325MG TABLET PO PRN ×4 (08:44→22:26)
[2016-11-02 09:00] VITALS: BP 131/73
[2016-11-02] MEDS ORDERED: PRO-STAT 64 30ML PO SCH (10:00)
[2016-11-02] MEDS: APIXABAN 5 MG TAB PO SCH (10:08)
[2016-11-02] MEDS: CELECOXIB 100 MG CAP PO SCH (10:08)
[2016-11-02] MEDS: amLODIPine BESYLATE 5 MG TAB PO SCH (10:09)
[2016-11-02 13:00] VITALS: BP 130/68
[2016-11-02 17:18] VITALS: BP 127/71
[2016-11-05] MEDS ORDERED: APIXABAN 5 MG TAB PO SCH (22:00)
== END 2016-11-02 22:32 | disposition short-term general hospital (02) | DRG 175 ==
LOC: ER 16:04 → TELE 16:05 → TELE-WESTW 23:45 → WEST WING 11-02 17:43
PROVIDERS: ADMIT Nurse Practitioner Family; ATTEND Internal Medicine
DX: I26.99 Other pulmonary embolism without acute cor pulmonale (principal); E43 Unspecified severe protein-calorie malnutrition; E11.21 Type 2 diabetes mellitus with diabetic nephropathy; I27.2 Other secondary pulmonary hypertension; I13.0 Hypertensive heart and chronic kidney disease with heart failure and stage 1 through stage 4 chronic kidney disease, or unspecified chronic kidney disease; I50.9 Heart failure, unspecified; N12 Tubulo-interstitial nephritis, not specified as acute or chronic; E11.42 Type 2 diabetes mellitus with diabetic polyneuropathy; S42.212A Unspecified displaced fracture of surgical neck of left humerus, initial encounter for closed fracture; M46.26 Osteomyelitis of vertebra, lumbar region; M48.56XA Collapsed vertebra, not elsewhere classified, lumbar region, initial encounter for fracture; E11.69 Type 2 diabetes mellitus with other specified complication; B95.62 Methicillin resistant Staphylococcus aureus infection as the cause of diseases classified elsewhere; D63.8 Anemia in other chronic diseases classified elsewhere; E11.22 Type 2 diabetes mellitus with diabetic chronic kidney disease; F32.9 Major depressive disorder, single episode, unspecified; N18.3 Chronic kidney disease, stage 3 (moderate); E03.9 Hypothyroidism, unspecified; G89.4 Chronic pain syndrome; I25.10 Atherosclerotic heart disease of native coronary artery without angina pectoris; K21.9 Gastro-esophageal reflux disease without esophagitis; M10.9 Gout, unspecified; E11.65 Type 2 diabetes mellitus with hyperglycemia; M46.46 Discitis, unspecified, lumbar region; M48.07 Spinal stenosis, lumbosacral region; M48.06 Spinal stenosis, lumbar region; M46.1 Sacroiliitis, not elsewhere classified; W18.39XA Other fall on same level, initial encounter; M85.80 Other specified disorders of bone density and structure, unspecified site; Z79.899 Other long term (current) drug therapy; Z82.49 Family history of ischemic heart disease and other diseases of the circulatory system; Z91.81 History of falling; Z95.1 Presence of aortocoronary bypass graft; Z79.84 Long term (current) use of oral hypoglycemic drugs; I25.2 Old myocardial infarction; Z90.49 Acquired absence of other specified parts of digestive tract; Z90.710 Acquired absence of both cervix and uterus; Z68.26 Body mass index [BMI] 26.0-26.9, adult; Y93.89 Activity, other specified; Y92.89 Other specified places as the place of occurrence of the external cause; Y99.8 Other external cause status
CPT/HCPCS: 36415; 51702; 71020; 71275; 72131; 72148; 80048; 80053; 80202; 81001; 82607; 82746; 82962; 83036; 83540; 83550; 83735; 84443; 84484; 85025; 85379; 87040; 87077; 87081; 87086; 87186; 93005; 93306; 93970; 94761; 96365; 96372; 96375; J0696; J1815; J1885; J2405

== ENCOUNTER 2017-02-11 07:56 | Inpatient (IN) | payer BC ==
[~2017-02-11] VITALS: Ht 170.2 cm; Wt 63.8 kg
[2017-02-11 10:10] LABS: Basophils # (auto) 0 uL; Monocytes # (auto) 0.4 uL
[2017-02-11 10:12] LABS: Basophils % (auto) 0.7 % (0.0-2.0); Eosinophils # (auto) 0 uL; Eosinophils % (auto) 0.3 % (0.0-7.0); Hematocrit 31.8 % (36.0-46.0); Lymphocytes # (auto) 0.4 uL; Lymphocytes % (auto) 6.4 % (10.0-50.0); Mean Corpuscular Hemoglobin 27.8 pg (28.0-32.0); Mean Corpuscular Hgb Conc. 31.6 g/dL (32.0-36.0); Mean Corpuscular Volume 88.2 fL (80.0-100.0); Mean Platelet Volume 7.8 fL (6.9-10.8); Monocytes % (auto) 5.6 % (0.0-12.0); Neutrophils # (auto) 5.7 uL; Platelet Count (auto) 229 10^3/uL (140-450); Red Cell Distribution Width 19.7 % (11.8-14.3); White Blood Cell 6.6 10^3/uL (4.4-10.8)
[2017-02-11 10:26] LABS: Albumin 3.8 g/dL (3.4-5.0); BUN/Creatinine Ratio 42.7; Bilirubin, Total 0.4 mg/dL (0.2-1.0); Total Protein 8.4 g/dL (6.4-8.2)
[2017-02-11 10:33] LABS: Potassium 5.8 mmol/L (3.5-5.1)
[2017-02-11] MEDS ORDERED: InsuLIN REG 1unit/0.01ml Soln (100units/ml) IV ONE (11:00)
[2017-02-11] MEDS ORDERED: SODIUM BICARBONATE 8.4 % INJ 50ML VIAL IV ONE (11:00)
[2017-02-11] MEDS ORDERED: CALCIUM GLUC 4.65meq/50ml D5AE 50 ML IV ONE (11:00)
[2017-02-11] MEDS ORDERED: DEXTROSE (50%) 50ML SYRG IV ONE (11:00)
[2017-02-11] MEDS ORDERED: MORPHINE SULF INJ 2 MG/ML SYRINGE 1ML IV PRN ×2 (11:45)
[2017-02-11] MEDS ORDERED: DEXTROSE (50%) 50ML SYRG IV PRN (11:45)
[2017-02-11] MEDS ORDERED: PROMETHAZINE HCL 25 MG/ML 1ML IV PRN (11:45)
[2017-02-11] MEDS ORDERED: NITROGLYCERIN 0.4 MG SL TAB SL PRN (11:45)
[2017-02-11] MEDS ORDERED: TEMAZEPAM 15 MG CAP PO PRN (11:45)
[2017-02-11] MEDS ORDERED: ACETAMINOPHEN 500 MG TAB PO PRN (11:45)
[2017-02-11] MEDS ORDERED: LORazepam 0.5 MG TAB PO PRN (11:45)
[2017-02-11] MEDS ORDERED: LACTULOSE 20Gm/30ML SOLN PO PRN ×2 (11:45)
[2017-02-11] MEDS ORDERED: CITALOPRAM HYDROBR 20 MG TAB PO ONE (12:00)
[2017-02-11] MEDS ORDERED: ASPirin 81 mg TAB PO ONE (12:00)
[2017-02-11] MEDS ORDERED: PANTOPRAZOLE 40 MG TAB PO ONE (12:00)
[2017-02-11] MEDS ORDERED: ALLOPURINOL 100 MG TAB PO ONE (12:00)
[2017-02-11] MEDS ORDERED: SODIUM CHLORIDE 0.9% 1,000 ML IV ONE ×4 (12:00→20:00)
[2017-02-11 12:03] LABS: INR 0.95 (0.9-1.15); Prothrombin Time 10.4 sec (9.37-12.3)
[2017-02-11 13:23] LABS: Urine Bilirubin Negative (Negative); Urine Blood Negative /uL (Negative); Urine Color Yellow (Yellow); Urine Glucose Normal (Normal); Urine Ketone TRACE (Negative); Urine Nitrite Negative (Negative); Urine RBC <1 /hpf (0 - 4); Urine Urobilinogen Normal (Negative); Urine pH 5.5 (5.0-8.0)
[2017-02-11] MEDS ORDERED: GABAPENTIN 300 MG CAP PO SCH (14:00)
[2017-02-11] MEDS: GABAPENTIN 300 MG CAP PO SCH ×2 (14:11→22:08)
[2017-02-11] MEDS: InsuLIN REG 1unit/0.01ml Soln (100units/ml) SC SCH ×2 (17:00→22:00)
[2017-02-11] MEDS: ACCU-CHEK COMFORT CURVE STRIP VI SCH ×2 (17:06→22:08)
[2017-02-11] MEDS ORDERED: ATORVASTATIN 20 MG TAB PO SCH (22:00)
[2017-02-11] MEDS: ATORVASTATIN 20 MG TAB PO SCH (22:08)
[2017-02-12 04:06] LABS: Basophils # (auto) 0.1 uL; Basophils % (auto) 1.3 % (0.0-2.0); Eosinophils # (auto) 0.1 uL; Eosinophils % (auto) 2.3 % (0.0-7.0); Hematocrit 28.2 % (36.0-46.0); Hemoglobin 8.9 g/dL (12.2-16.2); Lymphocytes # (auto) 0.7 uL; Lymphocytes % (auto) 16.6 % (10.0-50.0); Mean Corpuscular Hemoglobin 28.2 pg (28.0-32.0); Mean Corpuscular Hgb Conc. 31.4 g/dL (32.0-36.0); Mean Corpuscular Volume 89.7 fL (80.0-100.0); Mean Platelet Volume 7.6 fL (6.9-10.8); Monocytes # (auto) 0.4 uL; Monocytes % (auto) 9.1 % (0.0-12.0); Neutrophils % (auto) 70.7 % (37.0-80.0); Nucleated Red Blood Cells % 0.1 %; Platelet Count (auto) 191 10^3/uL (140-450); Red Cell Distribution Width 19.9 % (11.8-14.3); White Blood Cell 4.3 10^3/uL (4.4-10.8)
[2017-02-12 04:32] LABS: Albumin 3.1 g/dL (3.4-5.0); BUN/Creatinine Ratio 53.5; Bilirubin, Total 0.3 mg/dL (0.2-1.0); Calcium 8.7 mg/dL (8.5-10.1); Potassium 4.9 mmol/L (3.5-5.1)
[2017-02-12] MEDS: GABAPENTIN 300 MG CAP PO SCH ×3 (06:07→21:32)
[2017-02-12] MEDS: ACCU-CHEK COMFORT CURVE STRIP VI SCH ×4 (06:55→21:32)
[2017-02-12] MEDS: InsuLIN REG 1unit/0.01ml Soln (100units/ml) SC SCH ×4 (06:55→21:43)
[2017-02-12] MEDS: ALLOPURINOL 100 MG TAB PO SCH (10:00)
[2017-02-12] MEDS ORDERED: ASPirin 81 mg TAB PO SCH (10:00)
[2017-02-12 10:43] LABS: Temperature: 23.1 C (20.0-25.0)
[2017-02-12 12:00] VITALS: BP 168/79
[2017-02-12] MEDS: CITALOPRAM HYDROBR 20 MG TAB PO SCH (12:00)
[2017-02-12] MEDS: APIXABAN 5 MG TAB PO SCH ×2 (12:00→21:31)
[2017-02-12] MEDS: PANTOPRAZOLE 40 MG TAB PO SCH (13:15)
[2017-02-12] MEDS: SOD CHL 0.45% 1,000 ML IV SCH ×2 (16:00→21:34)
[2017-02-12 18:45] LABS: BUN/Creatinine Ratio 49.6; Potassium 4.8 mmol/L (3.5-5.1)
[2017-02-12] MEDS: FREE WATER PO SCH ×2 (20:00→21:27)
[2017-02-12] MEDS: HYDROcodone-ACET 5/325MG TAB PO PRN (20:24)
[2017-02-12] MEDS ORDERED: LORazepam 2MG/ML-1ML VIAL IV PRN (21:30)
[2017-02-12] MEDS: ATORVASTATIN 20 MG TAB PO SCH (21:31)
[2017-02-12 21:35] LABS: Urine Bilirubin Negative (Negative); Urine Blood Negative /uL (Negative); Urine Color Yellow (Yellow); Urine Glucose Normal (Normal); Urine Ketone 1+ (Negative); Urine Nitrite Negative (Negative); Urine RBC 2 /hpf (0 - 4); Urine Urobilinogen Normal (Negative)
[2017-02-13] VITALS: BP 153/73
[2017-02-13] MEDS: FREE WATER PO SCH ×4 (02:00→14:02)
[2017-02-13 04:00] VITALS: BP 172/75
[2017-02-13 06:26] LABS: Basophils # (auto) 0 uL; Basophils % (auto) 0.8 % (0.0-2.0); Eosinophils # (auto) 0.1 uL; Eosinophils % (auto) 1.8 % (0.0-7.0); Hematocrit 29.1 % (36.0-46.0); Hemoglobin 9.4 g/dL (12.2-16.2); Lymphocytes # (auto) 0.5 uL; Lymphocytes % (auto) 11.4 % (10.0-50.0); Mean Corpuscular Hemoglobin 28.2 pg (28.0-32.0); Mean Corpuscular Hgb Conc. 32.2 g/dL (32.0-36.0); Mean Corpuscular Volume 87.5 fL (80.0-100.0); Mean Platelet Volume 7.6 fL (6.9-10.8); Monocytes # (auto) 0.5 uL; Monocytes % (auto) 10.3 % (0.0-12.0); Neutrophils # (auto) 3.6 uL; Neutrophils % (auto) 75.7 % (37.0-80.0); Platelet Count (auto) 183 10^3/uL (140-450); Red Cell Distribution Width 18.8 % (11.8-14.3); White Blood Cell 4.8 10^3/uL (4.4-10.8)
[2017-02-13 06:47] LABS: BUN/Creatinine Ratio 47.6; Magnesium 2.5 mg/dL (1.6-2.6); Phosphorus 2.7 mg/dL (2.5-4.90); Potassium 4.5 mmol/L (3.5-5.1); Uric Acid 9.4 mg/dL (2.6-6.0)
[2017-02-13] MEDS: GABAPENTIN 300 MG CAP PO SCH ×3 (06:56→21:55)
[2017-02-13] MEDS: InsuLIN REG 1unit/0.01ml Soln (100units/ml) SC SCH ×4 (06:56→21:55)
[2017-02-13] MEDS: ACCU-CHEK COMFORT CURVE STRIP VI SCH ×4 (06:56→21:55)
[2017-02-13 08:00] VITALS: BP 160/82
[2017-02-13] MEDS: HYDROcodone-ACET 5/325MG TAB PO PRN ×2 (09:02→19:29)
[2017-02-13] MEDS: APIXABAN 5 MG TAB PO SCH ×2 (10:00→21:54)
[2017-02-13] MEDS: PANTOPRAZOLE 40 MG TAB PO SCH (10:00)
[2017-02-13] MEDS: CITALOPRAM HYDROBR 20 MG TAB PO SCH (10:00)
[2017-02-13] MEDS: ALLOPURINOL 100 MG TAB PO SCH (10:00)
[2017-02-13 11:54] VITALS: BP 149/80
[2017-02-13] MEDS: LEVOFLOXACIN 500 MG TAB PO SCH (12:11)
[2017-02-13] MEDS ORDERED: LEVO500T21 PO (12:59)
[2017-02-13] MEDS ORDERED: APIX5TAB OR (12:59)
[2017-02-13] MEDS: amLODIPine BESYLATE 5 MG TAB PO SCH (13:00)
[2017-02-13] MEDS ORDERED: LORazepam 2MG/ML-1ML VIAL IV ONE (13:15)
[2017-02-13 15:50] VITALS: BP 167/95
[2017-02-13 20:00] VITALS: BP 159/86
[2017-02-13] MEDS: ATORVASTATIN 20 MG TAB PO SCH (21:54)
[2017-02-14] VITALS: BP 154/92
[2017-02-14] MEDS ORDERED: PANT40TA2 PO (02:29)
[2017-02-14] MEDS ORDERED: ALLO100T PO (02:29)
[2017-02-14] MEDS ORDERED: DOCU-94 PO (02:29)
[2017-02-14] MEDS ORDERED: FERR-20 PO (02:29)
[2017-02-14] MEDS ORDERED: TRAZ100T2 PO (02:29)
[2017-02-14] MEDS ORDERED: SERT-274 PO (02:29)
[2017-02-14] MEDS ORDERED: OXY10CRT PO (02:29)
[2017-02-14] MEDS ORDERED: [UNRECOGNIZED DRUG - CODE] PO (02:29)
[2017-02-14] MEDS: HYDROcodone-ACET 5/325MG TAB PO PRN ×2 (03:22→09:37)
[2017-02-14 04:00] VITALS: BP 160/97
[2017-02-14] MEDS: InsuLIN REG 1unit/0.01ml Soln (100units/ml) SC SCH ×2 (05:50→12:27)
[2017-02-14] MEDS: ACCU-CHEK COMFORT CURVE STRIP VI SCH ×2 (05:50→12:23)
[2017-02-14] MEDS: GABAPENTIN 300 MG CAP PO SCH ×2 (05:53→15:57)
[2017-02-14 07:30] VITALS: BP 146/92
[2017-02-14] MEDS: APIXABAN 5 MG TAB PO SCH (09:34)
[2017-02-14] MEDS: LEVOFLOXACIN 500 MG TAB PO SCH (09:35)
[2017-02-14] MEDS: amLODIPine BESYLATE 5 MG TAB PO SCH (09:36)
[2017-02-14] MEDS: ALLOPURINOL 100 MG TAB PO SCH (09:36)
[2017-02-14] MEDS: PANTOPRAZOLE 40 MG TAB PO SCH (09:36)
[2017-02-14 12:00] VITALS: BP 138/85
[2017-02-14 14:53] VITALS: BP 138/85
[2017-02-14 16:00] VITALS: BP 150/80
[2017-02-18] MEDS ORDERED: APIXABAN 5 MG TAB PO SCH ×2 (22:00)
== END 2017-02-14 17:50 | disposition home health service (06) | DRG 91 ==
LOC: EDBD 07:56 → ER 08:11 → OVERFLOW 08:12 → DOU IN ICU 02-12 10:30
PROVIDERS: ADMIT Internal Medicine; ATTEND Internal Medicine
DX: G92 Toxic encephalopathy (principal); N17.0 Acute kidney failure with tubular necrosis; E87.0 Hyperosmolality and hypernatremia; E11.22 Type 2 diabetes mellitus with diabetic chronic kidney disease; E11.42 Type 2 diabetes mellitus with diabetic polyneuropathy; E87.5 Hyperkalemia; I48.91 Unspecified atrial fibrillation; E86.0 Dehydration; I27.82 Chronic pulmonary embolism; I13.0 Hypertensive heart and chronic kidney disease with heart failure and stage 1 through stage 4 chronic kidney disease, or unspecified chronic kidney disease; N39.0 Urinary tract infection, site not specified; E87.8 Other disorders of electrolyte and fluid balance, not elsewhere classified; D64.9 Anemia, unspecified; E78.5 Hyperlipidemia, unspecified; I25.10 Atherosclerotic heart disease of native coronary artery without angina pectoris; I50.9 Heart failure, unspecified; K21.9 Gastro-esophageal reflux disease without esophagitis; M10.9 Gout, unspecified; M19.90 Unspecified osteoarthritis, unspecified site; N18.9 Chronic kidney disease, unspecified; T40.605A Adverse effect of unspecified narcotics, initial encounter; M54.5 Low back pain; F32.9 Major depressive disorder, single episode, unspecified; H81.10 Benign paroxysmal vertigo, unspecified ear; M85.80 Other specified disorders of bone density and structure, unspecified site; Z79.82 Long term (current) use of aspirin; Z79.899 Other long term (current) drug therapy; Z82.49 Family history of ischemic heart disease and other diseases of the circulatory system; I25.2 Old myocardial infarction; Z90.49 Acquired absence of other specified parts of digestive tract; Z86.14 Personal history of Methicillin resistant Staphylococcus aureus infection; Z86.73 Personal history of transient ischemic attack (TIA), and cerebral infarction without residual deficits; Z90.710 Acquired absence of both cervix and uterus; Z95.1 Presence of aortocoronary bypass graft
CPT/HCPCS: 36415; 51702; 70450; 70551; 71010; 73070; 73502; 76775; 78306; 80048; 80053; 80061; 80307; 81001; 82550; 82570; 82607; 82746; 82962; 83036; 83735; 84100; 84156; 84300; 84443; 84484; 84550; 85025; 85610; 85652; 85730; 87086; 93005; 93886; 95819; 96365; 96375; 99291; G0378; J0610; J1815

== ENCOUNTER 2018-10-10 11:43 | Inpatient (IN) | payer BC ==
[2018-10-10] VITALS (19 sets, daily range): BP systolic 103–150; BP diastolic 44–82
[~2018-10-10] VITALS: Ht 154.9 cm; Wt 71.6 kg
[~2018-10-10 11:43] MED LIST changes: +AMLO5TAB15 PO; -AMLO5TAB2 PO; +APIX5TAB OR; -CITA-73 PO; +DOCU-94 PO; +FERR-20 PO; -GABA-497 PO; +GABA300C10 PO; -HYDR-531 PO; +OXY10CRT PO; +SERT-274 PO; +TRAZ100T2 PO; +[UNRECOGNIZED DRUG - CODE] PO
[2018-10-10] MEDS ORDERED: SODIUM CHLORIDE 0.9% 500 ML IVB ONE (12:02)
[2018-10-10] MEDS ORDERED: SODIUM CHLORIDE 0.9% 1,000 ML IV ONE (13:00)
[2018-10-10 13:24] LABS: Basophils # (auto) 0 uL; Eosinophils # (auto) 0 uL; Eosinophils % (auto) 0.1 % (0.0-7.0); Hemoglobin 13.6 g/dL (12.2-16.2)
[2018-10-10 13:38] LABS: Alanine Aminotransferase 11 U/L (13-56); Anion Gap 18 (5-15); Aspartate Aminotransferase 6 U/L (15-37); BUN/Creatinine Ratio 11.8; Blood Alcohol < 3.0 mg/dL (0-5); Calcium 8.4 mg/dL (8.5-10.1); Carbon Dioxide 10 mmol/L (21-32); Chloride 104 mmol/L (98-107); GFR African American 4 mL/min; GFR Non-African American 3 mL/min; Glucose 165 mg/dL (74-106); Sodium 132 mmol/L (136-145)
[2018-10-10 13:39] LABS: Basophils % (auto) 0.3 % (0.0-2.0); Hematocrit 41.6 % (36.0-46.0); Lymphocytes # (auto) 0.5 uL; Lymphocytes % (auto) 4.6 % (10.0-50.0); Mean Corpuscular Hemoglobin 30.2 pg (28.0-32.0); Mean Corpuscular Hgb Conc. 32.7 g/dL (32.0-36.0); Mean Corpuscular Volume 92.3 fL (80.0-100.0); Monocytes # (auto) 0.3 uL; Neutrophils # (auto) 10.2 uL; Nucleated Red Blood Cells % 0.1 %; Platelet Count (auto) 195 10^3/uL (140-450); Red Blood Cells 4.51 10^6/uL (4.0-5.20); White Blood Cell 11.1 10^3/uL (4.4-10.8)
[2018-10-10 13:42] LABS: INR 0.98 (0.9-1.15); Partial Thromboplastin Time 36.5 sec (23.64-32.05)
[2018-10-10 13:43] LABS: Alkaline Phosphatase 178 U/L (45-117); Bilirubin, Total 0.2 mg/dL (0.2-1.0); Total Protein 7.8 g/dL (6.4-8.2)
[2018-10-10 13:45] LABS: Blood Urea Nitrogen 137 mg/dL (7-18)
[2018-10-10] MEDS ORDERED: SODIUM BICARBONATE 8.4 % INJ 50ML VIAL IV ONE (14:00)
[2018-10-10] MEDS ORDERED: LIDOCAINE 2%HCL (LOCAL ANESTH.) INJ 20ML MDV ONE (14:15)
[2018-10-10] MEDS: NOREPINEPHRINE 8 MG/250ML KIT 250 ML IV SCH (14:17)
[2018-10-10] MEDS ORDERED: NOREPINEPHRINE 8 MG/250ML KIT 250 ML IV ONE (14:18)
[2018-10-10 15:22] LABS: Urine Bacteria MANY /hpf (None Seen); Urine Blood 1+ /uL (Negative); Urine Hyaline Cast FEW /lpf (0 - 2); Urine Mucus FEW (None Seen); Urine WBC 1136 /hpf (0 - 5); Urine WBC Clumps PRESENT /hpf (None Seen)
[2018-10-10] MEDS ORDERED: SODIUM BICARBONATE 50ML VIAL 150 ML in D5W 5% 1,000 ML IV ONE ×4 (15:30)
[2018-10-10] MEDS ORDERED: MIDAZOLAM HCL 1MG/1ML-2 ML VIAL ONE (15:32)
[2018-10-10] MEDS ORDERED: fentaNYL CITRATE 100 MCG/2 ML VL ONE (15:32)
[2018-10-10 15:40] LABS: Alcohol, Urine < 3.0 mg/dL (0-5); Amphetamine Screen, Urine NEGATIVE (NEGATIVE); Barbiturate Scree,Urine NEGATIVE (NEGATIVE); Benzodiazephine Screen, Urine NEGATIVE (NEGATIVE); Cannabinoid Screen, Urine NEGATIVE (NEGATIVE); Cocaine Screen, Urine NEGATIVE (NEGATIVE); Opiate Scree,Urine NEGATIVE (NEGATIVE); Phencyclidine Screen, Urine NEGATIVE (NEGATIVE)
[2018-10-10] MEDS ORDERED: HEPARIN SODIUM (PORCINE) 5000 UNITS/ML 1ML VIAL ONE (16:00)
--- NOTE | 2018-10-10 16:45 | NUR ---
Admit to ICU from [facility] admitted to ICU via rney on hospital monitor. Patient transferred to bed. Patient connected to ICU monitoring, weighed by bedscale, oriented to PURVI ROSENBAUM, LAMBERTO primary RN, unit.
[2018-10-10] MEDS ORDERED: NITROGLYCERIN 0.4 MG SL TAB SL PRN (17:15)
[2018-10-10] MEDS ORDERED: ACETAMINOPHEN 325 MG TAB PO PRN (17:15)
--- NOTE | 2018-10-10 17:56 | NUR ---
PICC LINE ASSESSMENT SPOKE WITH BALL ASSEMBLER ABOUT THE NEED FOR STAT PICC LINE PLACEMENT. STATES THERE IS ONLY A TELEPHONE ORDER FROM DR FULLER FOR PICC LINE. CLARIFIED WITH PICC LINE NURSE Jackelyn ROJAS, STATES OK TO TAKE TELEPHONE ORDER LONG NURSE GETS SIGNATURE FROM DR FULLER WITH IN 24 HOURS.
--- NOTE | 2018-10-10 18:33 | NUR ---
UNABLE TO FULLY COMPLETE ADMISSION DUE TO PATIENT BEING FORGETFUL/CONFUSED AND NO FAMILY AT BEDSIDE.
--- NOTE | 2018-10-10 19:05 | NUR ---
OPEN RECEIVED REPORT FROM DAY RN. ASSUMED CARE OF FEMALE PT. PT IS SITTING UP IN BED ALERT AND ORIENTATED, CONNECTED TO THE ICU MONITOR. NO SS OF DISTRESS NOTED AT THIS TIME. VS WNL, HOB 30* 2 SIDE RAILS UP, BED IN LOWEST POSITION, WHEELS LOCKED.RESPIRATIONS ARE EQUAL AND UNLABORED, NC 2 L. PT HAS A ALEISHA CATH NO SS OF REDNESS OR SWELLING , DRESSING IS CLEAN AND DRY. , R WRIST 22 G IV NO SS OF REDNESS OR SWELLING , DRESSING IS CLEAN AND DRY. , L WRIST 22 G IV, NO SS OF REDNESS OR SWELLING , DRESSING IS CLEAN AND DRY. PT STATS SHE HAS A BROKEN R ARM. R ARM IS SEEMS TO HAVE HAD MASSIVE TRAUMA. PT HAS A SCAR ON MEDIAL LOWER ABDOMEN. PT HAS GARCIA CATH HANGING BELOW BLADDER PATENT DRAINING YELLOW URINE. PT EDUCATED PARTY PLAN SALES HOST/HOSTESS LIGHT. CALL LIGHT WITHIN REACH. PT WITHIN FULL VIEW OF RN STATION. WILL CONTINUE TO CARE FOR AND MONITOR
--- NOTE | 2018-10-10 19:40 | NUR ---
PIC LINE NURSE AT BEDSIDE
[2018-10-10] MEDS ORDERED: LIDOCAINE 1% (LOCAL ANESTH.) PF 5ml SDV ID ONE (19:45)
--- NOTE | 2018-10-10 19:45 | NUR ---
PICC line placement Patient educated on need for PICC line placement. All risks and benefits explained and all questions and concerns addressed prior to procedure. Noted past medical history and allergies with no contraindications. INR and Plt counts within acceptable range. 5 fr PICC line inserted via L BASILIC vein using [employer] US and Tip Location System. Sterile technique with maximum barrier precautions utilized. Blood return obtained from each of 3 lumens and each flushed easily with NS using proper technique. PICC secured with Stat-lock; biodisc and occlusive dressing applied. Stat portable chest x-ray obtained for PICC tip placement. PENDING RESULTS *Baseline Arm Circumference 34CM *INTERNAL LENGHT 32 CM *EXTERNAL LENGHT 0 CM PICC lot # [id number] . Note:
--- NOTE | 2018-10-10 20:20 | NUR ---
ULTRASOUND AT BEDSIDE U.S. AT BEDSIDE, KIDNEY SCAN PER U.S. TECH
--- NOTE | 2018-10-10 21:05 | NUR ---
OK to use PICC line Xray completed. OK to use PICC LINE. PRIMARY RN KRISTAL NOTIFIED
--- NOTE | 2018-10-10 21:06 | NUR ---
PIC RN CALLED CONFIRMED PIC PLACEMENT " OK TO USE"
[2018-10-10] MEDS: SODIUM CHLOR 0.9% PF (SALINE LOCK) 10ML VIAL/SYR IV SCH (22:04)
[2018-10-10] MEDS: SODIUM BICARBONATE 50ML VIAL 100 ML in D5W/SOD CHL 0.45% 1,000 ML IV SCH (22:04)
[2018-10-10] MEDS: HEPARIN SODIUM (PORCINE) 5000 UNITS/ML 1ML VIAL SC SCH (22:06)
[2018-10-11] VITALS (39 sets, daily range): BP systolic 102–176; BP diastolic 41–101
--- NOTE | 2018-10-11 00:55 | NUR ---
PAIN PT STATES SHE IS IN PAIN 10/05. STATES PAIN IS IN ARM, ABDOMEN AND BACK. PT STATS ABDOMEN IS TENDER, ARM AND BACK HURTS. PRESCRIBED PAIN MEDICATION GIVEN. WILL REASSESS PT. WILL CONTINUE TO CARE FOR AND MONITOR. Addendum: 10/11/18 at 0437 by KRISTAL BREWSTER RN RN PRESCRIBED PAIN MEDICATION WILL BE GIVEN. WILL REASSESS .
--- NOTE | 2018-10-11 01:40 | NUR ---
PAIN PAIN MEDICATION GIVEN. PT REASSESSED AT THIS TIME. PT STATES SHE IS NO LONGER IN PAIN. VS WNL, NO SS OF DISTRESS NOTED AT THIS TIME . WILL CONTINUE TO MONITOR AND CARE FOR PT.
--- NOTE | 2018-10-11 03:10 | NUR ---
HYGIENE GAVE PT PARTIAL BATH AND PARTIAL CB CHANGE. SUCTION CANISTERS AND TUBING CHANGED. BED IN LOWEST POSITION, WHEELS LOCKED HOB30*, 2 SIDE RAILS UP. PT TOLERATED CARE. NO SS OF DISTRESS AT THIS TIME. WILL CONTINUE TO CARE FOR AND MONITOR
[2018-10-11 04:35] LABS: Basophils # (auto) 0 uL; Basophils % (auto) 0.8 % (0.0-2.0); Eosinophils # (auto) 0 uL; Eosinophils % (auto) 0.4 % (0.0-7.0); Hematocrit 33.2 % (36.0-46.0); Hemoglobin 11.3 g/dL (12.2-16.2); Lymphocytes # (auto) 0.4 uL; Lymphocytes % (auto) 7.1 % (10.0-50.0); Mean Corpuscular Hemoglobin 30.6 pg (28.0-32.0); Mean Corpuscular Hgb Conc. 34.1 g/dL (32.0-36.0); Monocytes # (auto) 0.6 uL; Neutrophils # (auto) 4.8 uL; Neutrophils % (auto) 81.7 % (37.0-80.0); Nucleated Red Blood Cells % 0.1 %; Platelet Count (auto) 156 10^3/uL (140-450); Red Blood Cells 3.69 10^6/uL (4.0-5.20); Red Cell Distribution Width 14.5 % (11.8-14.3); White Blood Cell 5.8 10^3/uL (4.4-10.8)
[2018-10-11 04:41] LABS: Calcium 7.8 mg/dL (8.5-10.1); Potassium 3.4 mmol/L (3.5-5.1)
[2018-10-11 04:44] LABS: BUN/Creatinine Ratio 13.3
--- NOTE | 2018-10-11 05:10 | NUR ---
CRITICAL LAB PAGED BUN 137 CREAT 10.3. AWAITING CALL BACK.
[2018-10-11] MEDS: SODIUM BICARBONATE 50ML VIAL 100 ML in D5W/SOD CHL 0.45% 1,000 ML IV SCH ×3 (06:26→19:39)
--- NOTE | 2018-10-11 06:50 | NUR ---
BRUSH CLEARER SURVEYING CHRISTINE BRUSH CLEARER SURVEYING CHRISTINE CAME TO UNIT INFORMED RN THAT MD STATED THE PT MAY POSSIBLY NOT NEED DIALYSIS. CHRISTINE INFORMED OF PTS ELEVATED LABS. CHRISTINE STATED HE WILL SPEAK TO THE DR AGAIN TO CONFIRM THAT THE MD DOES NOT WANT DIALYSIS.
[2018-10-11] MEDS ORDERED: SODIUM CHL 0.9% 1000 ML BAG XX ONE (08:00)
[2018-10-11 09:42] LABS: Hematocrit 31.4 % (36.0-46.0); Hemoglobin 10.8 g/dL (12.2-16.2)
[2018-10-11 09:56] LABS: % Iron Saturation 37.2 % (15-50)
[2018-10-11] MEDS: HEPARIN SODIUM (PORCINE) 5000 UNITS/ML 1ML VIAL SC SCH ×2 (10:00→21:41)
[2018-10-11] MEDS: FAMOTIDINE 20 MG TAB PO SCH (10:00)
[2018-10-11] MEDS: SODIUM CHLOR 0.9% PF (SALINE LOCK) 10ML VIAL/SYR IV SCH ×2 (10:00→21:52)
--- NOTE | 2018-10-11 11:00 | NUR ---
DR. FULLER HERE TO SEE PATIENT. SEE MD NOTES AND EMR FOR ANY NEW ORDERS.
[2018-10-11] MEDS: MORPHINE SULF INJ 2 MG/ML SYRINGE 1ML IV PRN (11:15)
[2018-10-11] MEDS: cefTRIAXone 1GM/50ML D5W 50 ML IV SCH (11:24)
--- NOTE | 2018-10-11 13:35 | NUR ---
DIALYSIS FINISHED 1 LITER REMOVED.
[2018-10-11] MEDS: NOREPINEPHRINE 8 MG/250ML KIT 250 ML IV SCH (14:14)
--- NOTE | 2018-10-11 14:43 | NUR ---
I spoke with CHOICE Brush Trimming Machine Setter Shavon and gave her a verbal update on the status of the patient.
[2018-10-11] MEDS: HYDROcodone-ACET 10/325MG TAB PO PRN ×2 (16:29→22:45)
--- NOTE | 2018-10-11 17:00 | NUR ---
DR. QUINTANA HERE TO SEE PATIENT.SEE MD NOTES AND EMR FOR NAY NEW ORDERS.
[2018-10-11] MEDS: ONDANSETRON HCL 4 MG/2 ML VIAL IV PRN ×2 (17:07→21:39)
--- NOTE | 2018-10-11 17:29 | NUR ---
2D ECHO BEING DONE AT THIS TIME.
--- NOTE | 2018-10-11 19:00 | NUR ---
OPENING NOTES ASSUMED CARE, A/O X 3 WITH NO SIGNS OF RESPIRATORY DISTRESS, C/O BACK PAIN, 6/10, RESPIRATIONS EVEN AND UNLABORED ON ROOM AIR SPO2 95%, CLEAR LUNG SOUNDS NOTED, RIGHT IJ ALEISHA CATHETER INTACT, TLC PICC LINE PATENT AND INTACT, ALL PORTS FLUSHED WELL AND RED PORT INFUSING D5W 1/2 NS WITH 50 ML NaHCO3 @ 125 ML/HR, GARCIA CATHETER DRAINING TO A CLEAR URINE. BED IN LOWEST POSITION WITH SIDE RAILS UP, BED ALARM ON, CALL LIGHT WITHIN REACH. WILL CONTINUE CARE AND SAFETY AND FALL PRECAUTIONS INSTITUTED. AT BEDSIDE.
--- NOTE | 2018-10-11 19:30 | NUR ---
ATE DINNER WITH POOR APPETITE AND CONSUMED ONLY ABOUT 25%.
--- NOTE | 2018-10-11 21:45 | NUR ---
Vomited once, will give zofran as ordered prn.
--- NOTE | 2018-10-11 21:50 | NUR ---
ICU patient trans to floor WAYNE HANEY transferred to 202 via wheelchair accompanied by Aldo RODGERS, on ekg monitor and portable O2. All patient medications and personal belongings transferred with patient to receiving floor. Patient care transferred to Uyen ORANTES. No distress noted upon departure. NOTE: Right IJ belle catheter, meeks catheter and Left upper arm PICC line intact. Cl notified thru phone of pt's transfer to room 202.
--- NOTE | 2018-10-11 21:50 | NUR ---
Received report from Corazon ICU nurse.
--- NOTE | 2018-10-11 21:52 | NUR ---
Patient arrived to the floor via wheelchair accompanied by charge nurse.
--- NOTE | 2018-10-12 01:05 | NUR ---
ROUNDS PATIENT IS ALERT AND ORIENTED, NO DISTRESS NOTED, SATURATING AT 95% ON 2LNC WITH EVEN AND UNLABORED RESPIRATIONS. SKIN IS INTACT, HAS GARCIA CATHETER, PICC LINE WITH 3 LUMENS AND RIJ DIALYSIS CATHETER. NOTED DEFORMITY TO RIGHT ARM BUT PATIENT STATES "IT'S NOT HURTING. BED PLACED IN LOWEST POSITION, BED ALARM TURNED ON AND CALL LIGHT WITHIN REACH.
[2018-10-12] MEDS: ONDANSETRON HCL 4 MG/2 ML VIAL IV PRN ×4 (03:21→21:14)
[2018-10-12] MEDS: MORPHINE SULF INJ 2 MG/ML SYRINGE 1ML IV PRN ×3 (03:22→21:14)
[2018-10-12] MEDS: SODIUM BICARBONATE 50ML VIAL 100 ML in D5W/SOD CHL 0.45% 1,000 ML IV SCH ×3 (04:04→17:01)
[2018-10-12 05:00] VITALS: BP 108/49
[2018-10-12 05:14] LABS: Basophils # (auto) 0 uL; Basophils % (auto) 0.9 % (0.0-2.0); Eosinophils # (auto) 0 uL; Hematocrit 28.1 % (36.0-46.0); Hemoglobin 9.7 g/dL (12.2-16.2); Lymphocytes # (auto) 0.5 uL; Lymphocytes % (auto) 10.8 % (10.0-50.0); Mean Corpuscular Hemoglobin 30.7 pg (28.0-32.0); Mean Corpuscular Hgb Conc. 34.4 g/dL (32.0-36.0); Mean Corpuscular Volume 89.2 fL (80.0-100.0); Monocytes # (auto) 0.5 uL; Monocytes % (auto) 12.5 % (0.0-12.0); Neutrophils # (auto) 3.2 uL; Neutrophils % (auto) 74.8 % (37.0-80.0); Nucleated Red Blood Cells % 0.1 %; Platelet Count (auto) 134 10^3/uL (140-450); Red Blood Cells 3.15 10^6/uL (4.0-5.20); Red Cell Distribution Width 14.6 % (11.8-14.3); White Blood Cell 4.3 10^3/uL (4.4-10.8)
[2018-10-12 05:32] LABS: BUN/Creatinine Ratio 14.6; Calcium 7.4 mg/dL (8.5-10.1)
[2018-10-12 05:40] LABS: Potassium 2.7 mmol/L (3.5-5.1)
--- NOTE | 2018-10-12 05:41 | NUR ---
Lab called and reports a Potassium of 2.7.
--- NOTE | 2018-10-12 06:06 | NUR ---
MD BEAVERS SPOKE WITH DR ALFORD AND RECEIVED AN ORDER OF POTASSIUM 40 MEQ IV ONE TIME. ORDER NOTED
--- NOTE | 2018-10-12 06:53 | NUR ---
LAB CALLED AND REPORTS A POSITIVE RESULT FOR MRSA IN NARES.
[2018-10-12] MEDS ORDERED: POTASSIUM CHLORIDE 40 MEQ, LIDOCAINE 1% (LOCAL ANESTH.) 4 ML in SODIUM CHL 0.9% 100 ML IV ONE (07:15)
--- NOTE | 2018-10-12 07:15 | NUR ---
MD BEAVERS LEFT A MESSAGE WITH DR STEINBERG'S ANSWERING SERVICE.
--- NOTE | 2018-10-12 07:15 | NUR ---
OPENING SHIFT NOTE ASSUMED CARE OF PATIENT FROM TEAM ASSEMBLER RN MARTI. PATIENT IS AWAKE AND ALERT X4. PATIENT HAS NO S/S OF DISTRESS/SOB OR PAIN. INSTRUCTED PATIENT ON POC, PATIENT VERBALIZED UNDERSTANDING. BED IS IN LOWEST POSITION WITH SIDE RAILS RAISED X2, BED WHEELS LOCKED, CALL LIGHT IS WITHIN REACH, AND AGRCIA IS HANGING BELOW BLADDER AND IS DRAINING ORANGE URINE. WILL CONTINUE TO MONITOR.
--- NOTE | 2018-10-12 07:20 | NUR ---
REPORT GIVEN TO SCOTT AND INFORMED OF PATIENT'S NEW POTASSIUM ORDER AND A POSITIVE RESULT FOR MRSA IN NARES.
[2018-10-12 07:55] VITALS: BP 123/63
[2018-10-12] MEDS: HEPARIN SODIUM (PORCINE) 5000 UNITS/ML 1ML VIAL SC SCH ×2 (09:23→21:14)
[2018-10-12] MEDS: cefTRIAXone 1GM/50ML D5W 50 ML IV SCH (09:27)
[2018-10-12] MEDS: SODIUM CHLOR 0.9% PF (SALINE LOCK) 10ML VIAL/SYR IV SCH ×2 (09:27→21:13)
--- NOTE | 2018-10-12 10:10 | NUR ---
MD STEINBERG AT BEDSIDE UPDATED MD ON PATIENT'S STATUS, INCLUDING POSITIVE MRSA IN NARES AND URINE BACTERIAL CULTURE RESULTS, MD IS AWARE AND WILL PUT IN NEW ORDERS. WILL FOLLOW THROUGH WITH NEW ORDERS.
[2018-10-12 12:00] VITALS: BP 128/65
--- NOTE | 2018-10-12 12:00 | NUR ---
PHYSICAL THERAPY AT BEDSIDE PER THERAPIST PATIENT AMBULATED TO DOOR WITH NO ASSISTANCE AND STEADY GAIT. PATIENT IS SITTING IN CHAIR AT THIS TIME. PATIENT HAS NO S/S OF DISTRESS/SOB OR PAIN AT THIS TIME.
[2018-10-12] MEDS: MUPIROCIN 2% OINT 15gm or 22gm EACHNOSTRI SCH ×2 (14:47→21:13)
[2018-10-12 16:20] VITALS: BP 130/69
--- NOTE | 2018-10-12 19:18 | NUR ---
CLOSING SHIFT NOTE ENDORSED CARE TO COMPOSER TEACHING ARTIST LAMBERTO VASQUEZ. PATIENT HAS NO S/S OF DISTRESS/SOB OR PAIN AT THIS TIME.
--- NOTE | 2018-10-12 19:30 | NUR ---
OPENING SHIFT NOTE RECEIVED REPORT FROM DAYSHIFT RN. PATIENT LYING IN BED WATCHING TELEVISION. NO S/S OF DISTRESS OR SOB. NO PAIN NOTED OR REPORTED AT THIS TIME. PATIENT A/O X4, AMBULATORY. UPDATED PATIENT ON POC, VERBALIZED UNDERSTANDING. BED LOCKED IN LOW POSITION, CALL LIGHT WITHIN REACH. WILL CONTINUE TO MONITOR PATIENT Q1HR AND PRN.
[2018-10-12] MEDS: FAMOTIDINE 20 MG TAB PO SCH (21:13)
[2018-10-12 22:00] VITALS: BP 143/67
[2018-10-12] MEDS: HYDROcodone-ACET 10/325MG TAB PO PRN (23:50)
[2018-10-13] MEDS: SODIUM BICARBONATE 50ML VIAL 100 ML in D5W/SOD CHL 0.45% 1,000 ML IV SCH ×2 (04:51→15:45)
[2018-10-13 05:00] VITALS: BP 140/80
[2018-10-13] MEDS: ONDANSETRON HCL 4 MG/2 ML VIAL IV PRN ×3 (06:54→19:53)
[2018-10-13] MEDS: MORPHINE SULF INJ 2 MG/ML SYRINGE 1ML IV PRN ×4 (06:54→19:53)
--- NOTE | 2018-10-13 07:10 | NUR ---
OPENING SHIFT NOTE ASSUMED CARE OF PATIENT FROM SR. MANAGER MARKETING RN PEDRO. PATIENT IS AWAKE AND ALERT X4. PATIENT HAS NO S/S OF DISTRESS/SOB OR PAIN. INSTRUCTED PATIENT ON POC, PATIENT VERBALIZED UNDERSTANDING. BED IS IN LOWEST POSITION WITH SIDE RAILS RAISED X2, BED WHEELS LOCKED, CALL LIGHT IS WITHIN REACH, AND GARCIA IS HANGING BELOW BLADDER AND IS DRAINING YELLOW URINE. WILL CONTINUE TO MONITOR.
[2018-10-13 07:40] VITALS: BP 152/79
[2018-10-13] MEDS: HEPARIN SODIUM (PORCINE) 5000 UNITS/ML 1ML VIAL SC SCH ×2 (08:56→21:41)
[2018-10-13] MEDS: cefTRIAXone 1GM/50ML D5W 50 ML IV SCH (09:01)
[2018-10-13] MEDS: SODIUM CHLOR 0.9% PF (SALINE LOCK) 10ML VIAL/SYR IV SCH ×2 (09:01→21:37)
[2018-10-13] MEDS: MUPIROCIN 2% OINT 15gm or 22gm EACHNOSTRI SCH ×2 (09:04→21:37)
--- NOTE | 2018-10-13 09:20 | NUR ---
MD BENÍTEZ AT BEDSIDE UPDATED MD ON PATIENT'S STATUS INCLUDING POTASSIUM LEVEL OF 2.9, MD IS AWARE AND WILL ORDER POTASSIUM FOR PATIENT. PER MD HE WILL REMOVE TEMPORARY CATHETER FOR DIALYSIS AND WANTS GARCIA DISCONTINUED. WILL FOLLOW THROUGH WITH ORDERS.
[2018-10-13 09:43] LABS: Calcium 7.6 mg/dL (8.5-10.1)
--- NOTE | 2018-10-13 09:45 | NUR ---
Meeks catheter dc'd Order to discontinue meeks catheter. Meeks dc'd with clean technique following deflation of balloon. Patient tolerated well with no complaints of pain. 300 ml yellow urine drained. Continue care.
[2018-10-13 09:46] VITALS: BP 156/75
[2018-10-13 09:46] LABS: Potassium 2.9 mmol/L (3.5-5.1)
[2018-10-13] MEDS ORDERED: POTASSIUM CHL 20 Meq TABLET PO ONE (10:15)
--- NOTE | 2018-10-13 10:20 | NUR ---
MD BENÍTEZ AT BEDSIDE. TOOK OUT CENTRAL LINE. PATIENT TOLERATED WELL. NO S/S OF DISTRESS/SOB OR PAIN.
--- NOTE | 2018-10-13 10:48 | NUR ---
CALLED PHARMACY REGARDING POTASSIUM ORDER. INFORMED THEM 40 meq POTASSIUM NEEDS TO BE GIVEN TWICE 2 HOURS APART. PHARMACY IS AWARE AND WILL ADJUST SCHEDULE
[2018-10-13] MEDS: POTASSIUM CHL 20 Meq TABLET PO SCH ×2 (12:18→13:54)
[2018-10-13 12:37] VITALS: BP 178/92
--- NOTE | 2018-10-13 12:41 | NUR ---
SPOKE WITH DR. STEINBERG INFORMED HIM OF PATIENT'S BLOOD PRESSURE OF 178/92 mmHg AND HEART RATE 64 BPM. MD IS AWARE AND ORDERED HYDRALAZINE TO BE GIVEN.
[2018-10-13] MEDS ORDERED: hydrALAZINE HCL 20 MG/ML VL IV PRN (12:45)
--- NOTE | 2018-10-13 13:58 | NUR ---
Estimated needs based on AJBW 53.8 kg; factors increased for HD needs 8092-7514 kcal (30-35 kcal/kg) 64-75 g protein (1.2-1.4 g/kg) Addendum: 10/13/18 at [address] Amended: Links added.
--- NOTE | 2018-10-13 16:12 | NUR ---
MD STEINBERG AT BEDSIDE UPDATED HIM ON PATIENT'S STATUS, INCLUDING BLOOD PRESSURE TAKEN AT BEDSIDE BY KALSOMINER, PATIENT HAS BEEN NAUSEAS, AND TROUBLE FALLING ASLEEP. MD IS AWARE AND ORDERED NIFEDIPINE, PHENERGAN, AND AMBIEN. WILL FOLLOW THROUGH WITH ORDERS.
[2018-10-13] MEDS ORDERED: PROMETHAZINE HCL 25 MG/ML 1ML IV PRN (16:15)
[2018-10-13] MEDS ORDERED: NIFEdipine 10 MG CAP PO ONE (16:15)
[2018-10-13] MEDS ORDERED: ZOLPIDEM TARTRATE 5 MG TAB PO PRN (16:15)
[2018-10-13 16:18] VITALS: BP 163/87
--- NOTE | 2018-10-13 19:20 | NUR ---
CLOSING SHIFT NOTE ENDORSED CARE TO MANAGER WATER LAMBERTO VASQUEZ. PATIENT HAS NO S/S OF DISTRESS/SOB OR PAIN AT THIS TIME.
--- NOTE | 2018-10-13 19:30 | NUR ---
OPENING SHIFT NOTE RECEIVED REPORT FROM DAYSHIFT RN. PATIENT LYING IN BED WATCHING TELEVISION. NO S/S OF DISTRESS OR SOB. NO PAIN NOTED OR REPORTED AT THIS TIME. CONTACT ISOLATION PRECAUTIONS IN PLACE. PATIENT A/O X4, AMBULATORY. UPDATED PATIENT ON POC, VERBALIZED UNDERSTANDING. BED LOCKED IN LOW POSITION, CALL LIGHT WITHIN REACH. WILL CONTINUE TO MONITOR PATIENT Q1HR AND PRN.
[2018-10-13] MEDS: NIFEdipine 10 MG CAP PO SCH (21:38)
[2018-10-13 22:00] VITALS: BP 133/69
[2018-10-14] MEDS: HYDROcodone-ACET 10/325MG TAB PO PRN ×2 (03:33→11:33)
[2018-10-14 05:00] VITALS: BP 145/81
[2018-10-14 05:21] LABS: Basophils # (auto) 0 uL; Basophils % (auto) 0.6 % (0.0-2.0); Eosinophils # (auto) 0.1 uL; Eosinophils % (auto) 2.5 % (0.0-7.0); Hematocrit 29.9 % (36.0-46.0); Hemoglobin 10.1 g/dL (12.2-16.2); Lymphocytes # (auto) 0.7 uL; Lymphocytes % (auto) 17.9 % (10.0-50.0); Mean Corpuscular Hemoglobin 30.4 pg (28.0-32.0); Mean Corpuscular Hgb Conc. 33.7 g/dL (32.0-36.0); Mean Corpuscular Volume 89.9 fL (80.0-100.0); Monocytes # (auto) 0.3 uL; Monocytes % (auto) 9.4 % (0.0-12.0); Neutrophils # (auto) 2.5 uL; Neutrophils % (auto) 69.6 % (37.0-80.0); Nucleated Red Blood Cells % 0.2 %; Platelet Count (auto) 127 10^3/uL (140-450); Red Blood Cells 3.33 10^6/uL (4.0-5.20); Red Cell Distribution Width 13.9 % (11.8-14.3); White Blood Cell 3.6 10^3/uL (4.4-10.8)
[2018-10-14 05:50] LABS: BUN/Creatinine Ratio 17.9; Calcium 7.7 mg/dL (8.5-10.1); Magnesium 1.6 mg/dL (1.6-2.6)
[2018-10-14] MEDS ORDERED: CATHFLO ACTIVASE (ALTEPLASE) 2 MG VIAL IV ONE (06:00)
[2018-10-14 06:08] LABS: Potassium 2.9 mmol/L (3.5-5.1)
[2018-10-14] MEDS: SODIUM BICARBONATE 50ML VIAL 100 ML in D5W/SOD CHL 0.45% 1,000 ML IV SCH ×2 (06:13→09:15)
--- NOTE | 2018-10-14 06:15 | NUR ---
CRITICAL POTASSIUM PATIENT HAS POTASSIUM LEVEL OF 2.9. RUTHANN LAW, RECEIVED ORDER FOR POTASSIUM CHLORIDE 40MEQ PO. WILL CARRY OUT ORDER AND CONTINUE TO MONITOR PATIENT.
[2018-10-14] MEDS ORDERED: POTASSIUM CHL 20 Meq TABLET PO ONE (06:30)
--- NOTE | 2018-10-14 07:05 | NUR ---
OPENING SHIFT NOTE ASSUMED CARE OF PATIENT FROM NATURE PHOTOGRAPHER RN PEDRO. PATIENT IS AWAKE AND ALERT X4. PATIENT HAS NO S/S OF DISTRESS/SOB OR PAIN. INSTRUCTED PATIENT ON POC, PATIENT VERBALIZED UNDERSTANDING. BED IS IN LOWEST POSITION WITH SIDE RAILS RAISED X2, BED WHEELS LOCKED, CALL LIGHT IS WITHIN REACH. WILL CONTINUE TO MONITOR.
[2018-10-14 07:40] VITALS: BP 149/86
[2018-10-14] MEDS: cefTRIAXone 1GM/50ML D5W 50 ML IV SCH (08:59)
[2018-10-14] MEDS: NIFEdipine 10 MG CAP PO SCH (08:59)
[2018-10-14 09:00] VITALS: BP 149/86
[2018-10-14] MEDS: SODIUM CHLOR 0.9% PF (SALINE LOCK) 10ML VIAL/SYR IV SCH (09:00)
[2018-10-14] MEDS: FAMOTIDINE 20 MG TAB PO SCH (09:00)
[2018-10-14] MEDS: MUPIROCIN 2% OINT 15gm or 22gm EACHNOSTRI SCH (09:02)
[2018-10-14] MEDS: HEPARIN SODIUM (PORCINE) 5000 UNITS/ML 1ML VIAL SC SCH (09:02)
[2018-10-14] MEDS ORDERED: PANTOPRAZOLE 40 MG TAB PO SCH (10:00)
[2018-10-14 11:33] LABS: Hepatitis A Ab IgM Negative; Hepatitis B Core IgM Negative; Hepatitis B Surface Antigen Negative (Negative); Hepatitis C Antibody Negative (Negative)
[2018-10-14 13:00] VITALS: BP 141/76
--- NOTE | 2018-10-14 15:00 | NUR ---
MD STEINBERG AT BEDSIDE UPDATED MD ON PATIENT'S STATUS INCLUDING URINE SENSITIVITY REPORT, POTASSIUM LEVEL AND BLOOD PRESSURE. MD IS AWARE AND IS GOING TO DISCHARGE PATIENT WITH HOME HEALTH. PER MD HIS KNAPSACK SPRAYER WILL SET UP HOME HEALTH. INFORMED PHARMACY RECOMMENDED TO PRESCRIBE LEVAQUIN INSTEAD OF CIPROFLOXACIN FOR KIDNEY FUNCTION, MD IS AWARE AND WROTE SCRIPT FOR CIPROFLOXACIN. ALSO INFORMED MD, ECHO RESULTS ARE STILL PENDING, MD IS AWARE.
--- NOTE | 2018-10-14 16:51 | NUR ---
Contacted [facility] clinical application manager, regarding home health order for discharge today. Requested information on contracted vendors and was referred to [facility]. Faxed clinical information to [facility] and notified Khushbu, admissions dean, that pt would be discharged tonight. Also notified that authorization would be provided by [facility]avin[facility] clinical application manager tonight or tomorrow. Notified nurse that pt was accepted onto [facility] health service, ( [phone]) and is clear for discharge.
[2018-10-14 17:16] VITALS: BP 141/76
--- NOTE | 2018-10-14 18:30 | NUR ---
Discharge instructions given as ordered. Encourage to follow up with PMD as instructed. All questions and concerns addressed. Patient verbalized understanding. Medication reconciliation form completed and copy given to patient. PICC line removed, catheter intact, pressure dressing applied. Telemetry unit returned to ICU. Patient taken to vehicle via wheelchair with all personal belongings, accompanied by staff and family member. No distress noted at time of departure.
== END 2018-10-14 18:25 | disposition home health service (06) | DRG 673 ==
LOC: ER 11:43 → EDBD 11:43 → ICU WEST 11:44 → TELE-CENTR 10-11 21:52
PROVIDERS: ADMIT Internal Medicine; ATTEND Internal Medicine
PROC: 0JH63XZ Insertion of Tunneled Vascular Access Device into Chest Subcutaneous Tissue and Fascia, Percutaneous Approach (ICD-10-PCS; principal; 2018-10-10)
PROC: 02H633Z Insertion of Infusion Device into Right Atrium, Percutaneous Approach (ICD-10-PCS; 2018-10-10)
PROC: B2141ZZ Fluoroscopy of Right Heart using Low Osmolar Contrast (ICD-10-PCS; 2018-10-10)
PROC: B244ZZZ Ultrasonography of Right Heart (ICD-10-PCS; 2018-10-10)
PROC: 02HV33Z Insertion of Infusion Device into Superior Vena Cava, Percutaneous Approach (ICD-10-PCS; 2018-10-10)
PROC: 5A1D70Z Performance of Urinary Filtration, Intermittent, Less than 6 Hours Per Day (ICD-10-PCS; 2018-10-11)
DX: N17.0 Acute kidney failure with tubular necrosis (principal); G93.41 Metabolic encephalopathy; J15.0 Pneumonia due to Klebsiella pneumoniae; N39.0 Urinary tract infection, site not specified; E87.2 Acidosis; Z99.2 Dependence on renal dialysis; I12.9 Hypertensive chronic kidney disease with stage 1 through stage 4 chronic kidney disease, or unspecified chronic kidney disease; E11.22 Type 2 diabetes mellitus with diabetic chronic kidney disease; E87.5 Hyperkalemia; N18.2 Chronic kidney disease, stage 2 (mild); E78.5 Hyperlipidemia, unspecified; E87.6 Hypokalemia; F32.9 Major depressive disorder, single episode, unspecified; M10.9 Gout, unspecified; M54.9 Dorsalgia, unspecified; G89.4 Chronic pain syndrome; I25.10 Atherosclerotic heart disease of native coronary artery without angina pectoris; Z79.891 Long term (current) use of opiate analgesic; Z82.49 Family history of ischemic heart disease and other diseases of the circulatory system; Z95.1 Presence of aortocoronary bypass graft; Z90.710 Acquired absence of both cervix and uterus; Z90.49 Acquired absence of other specified parts of digestive tract
CPT/HCPCS: 36415; 36561; 36569; 36600; 51702; 70450; 71045; 76775; 76942; 77001; 80048; 80053; 80074; 80307; 80320; 81001; 82728; 82805; 82962; 83540; 83550; 83605; 83735; 83880; 84484; 85014; 85018; 85025; 85379; 85610; 85730; 86141; 87040; 87081; 87086; 87088; 87186; 90935; 93005; 93306; 94761; 96361; 96374; 97110; 97116; 97163; 97530; 99152; 99291; 99292; G0378; J0696; J1642; J2001; J2250; J2405

== ENCOUNTER 2018-10-15 13:56 | Emergency (ER) | payer BC ==
[~2018-10-15 13:56] MED LIST changes: -OXY10CRT PO
[2018-10-15] MEDS ORDERED: LORazepam 2MG/ML-1ML VIAL IV ONE (14:45)
[2018-10-15 15:20] VITALS: BP 142/101
[2018-10-15 15:25] LABS: Albumin 3.8 g/dL (3.4-5.0); Anion Gap 12 (5-15); Blood Urea Nitrogen 21 mg/dL (7-18); Calcium 8.5 mg/dL (8.5-10.1); Carbon Dioxide 26 mmol/L (21-32); Chloride 100 mmol/L (98-107); Glucose 125 mg/dL (74-106); Magnesium 1.4 mg/dL (1.6-2.6); Potassium 3.1 mmol/L (3.5-5.1); Sodium 138 mmol/L (136-145)
[2018-10-15 15:33] LABS: Alanine Aminotransferase 17 U/L (13-56); Alkaline Phosphatase 121 U/L (45-117); Aspartate Aminotransferase 24 U/L (15-37); BUN/Creatinine Ratio 11.2; Bilirubin, Total 0.6 mg/dL (0.2-1.0); GFR African American 34 mL/min; GFR Non-African American 28 mL/min; Total Protein 7.9 g/dL (6.4-8.2)
[2018-10-15 15:35] LABS: Basophils # (auto) 0 uL; Basophils % (auto) 0.5 % (0.0-2.0); Eosinophils # (auto) 0.1 uL; Eosinophils % (auto) 0.9 % (0.0-7.0); Hemoglobin 12.6 g/dL (12.2-16.2); Lymphocytes # (auto) 0.8 uL; Lymphocytes % (auto) 11.2 % (10.0-50.0); Mean Corpuscular Hemoglobin 29.9 pg (28.0-32.0); Mean Corpuscular Hgb Conc. 33.1 g/dL (32.0-36.0); Mean Corpuscular Volume 90.2 fL (80.0-100.0); Monocytes # (auto) 0.6 uL; Monocytes % (auto) 8.2 % (0.0-12.0); Neutrophils # (auto) 5.5 uL; Neutrophils % (auto) 79.2 % (37.0-80.0); Platelet Count (auto) 202 10^3/uL (140-450); Red Blood Cells 4.22 10^6/uL (4.0-5.20); Red Cell Distribution Width 14.1 % (11.8-14.3)
[2018-10-15] MEDS ORDERED: POTASSIUM CHL 20 Meq TABLET PO ONE (16:00)
== END 2018-10-15 16:17 | disposition home or self-care (01) ==
LOC: EDUNIT# 13:56 → EDBD 13:56 → ER 14:01
DX: F41.9 Anxiety disorder, unspecified (principal); E87.6 Hypokalemia; E11.9 Type 2 diabetes mellitus without complications; I25.810 Atherosclerosis of coronary artery bypass graft(s) without angina pectoris; M10.9 Gout, unspecified; E78.5 Hyperlipidemia, unspecified; I10 Essential (primary) hypertension; Z90.49 Acquired absence of other specified parts of digestive tract; Z79.899 Other long term (current) drug therapy; Z95.1 Presence of aortocoronary bypass graft; Z90.710 Acquired absence of both cervix and uterus
CPT/HCPCS: 36415; 71045; 80053; 83735; 84484; 85025; 93005; 94761; 96374; 99284; J2060

== ENCOUNTER 2019-07-13 15:47 | Inpatient (IN) | payer BC ==
[~2019-07-13] VITALS: Ht 162.6 cm; Wt 75.5 kg
[~2019-07-13 15:47] MED LIST changes: -TRAZ100T2 PO; +TRAZ100T3 PO
[2019-07-13 16:18] LABS: Basophils # (auto) 0 10 ^3/uL (0-0.2); Eosinophils # (auto) 0.2 10 ^3/uL (0-0.8); Eosinophils % (auto) 2.2 % (0.0-7.0); Hemoglobin 8.7 g/dL (12.2-16.2); Mean Corpuscular Hemoglobin 29.7 pg (28.0-32.0); Mean Corpuscular Hgb Conc. 30.9 g/dL (32.0-36.0); Monocytes # (auto) 0.4 10 ^3/uL (0-1.3); Monocytes % (auto) 5.5 % (0.0-12.0); Neutrophils # (auto) 6.2 10 ^3/uL (1.6-8.6); Red Blood Cells 2.93 10^6/uL (4.0-5.20)
[2019-07-13 16:20] LABS: Basophils % (auto) 0.5 % (0.0-2.0); Hematocrit 28.2 % (36.0-46.0); Lymphocytes # (auto) 0.5 10 ^3/uL (0.4-5.4); Lymphocytes % (auto) 6.3 % (10.0-50.0); Mean Corpuscular Volume 96.2 fL (80.0-100.0); Neutrophils % (auto) 85.5 % (37.0-80.0); Nucleated Red Blood Cells % 0.1 %; Platelet Count (auto) 233 10^3/uL (140-450); Red Cell Distribution Width 17.8 % (11.8-14.3); White Blood Cell 7.3 10^3/uL (4.4-10.8)
[2019-07-13 16:39] LABS: Albumin 2.8 g/dL (3.4-5.0); Calcium 8.5 mg/dL (8.5-10.1)
[2019-07-13 16:45] LABS: BUN/Creatinine Ratio 12.8; Bilirubin, Total 0.4 mg/dL (0.2-1.0); Total Protein 7.3 g/dL (6.4-8.2)
[2019-07-13] MEDS ORDERED: SODIUM CHLORIDE 0.9% 1,000 ML IV ONE ×2 (16:53→21:45)
[2019-07-13] MEDS ORDERED: SODIUM CHLORIDE 0.9% 500 ML IVB ONE (16:53)
[2019-07-13 17:00] LABS: Potassium 5.7 mmol/L (3.5-5.1)
[2019-07-13 17:21] LABS: INR 1.05 (0.9-1.15); Partial Thromboplastin Time 33.6 sec (23.64-32.05)
[2019-07-13] MEDS ORDERED: CALCIUM CHL 100MG/ML 1,000 MG in D5W 5% 100 ML IV ONE (18:15)
[2019-07-13] MEDS ORDERED: FUROSEMIDE 20 MG/2 ML VIAL IV ONE (18:15)
[2019-07-13] MEDS ORDERED: SODIUM BICARBONATE 8.4 % INJ 50ML VIAL IV ONE (18:15)
[2019-07-13] MEDS ORDERED: ALBUTEROL SULF 2.5 MG/0.5ML(0.5%) NEB SOLN NEB ONE (18:30)
[2019-07-13] MEDS ORDERED: DEXTROSE (50%) 50ML SYRG IV ONE (18:30)
[2019-07-13] MEDS ORDERED: InsuLIN REG 1unit/0.01ml Soln (100units/ml) IV ONE (18:30)
[2019-07-13] MEDS ORDERED: NITROGLYCERIN 0.4 MG SL TAB SL PRN (18:45)
[2019-07-13] MEDS ORDERED: MORPHINE SULF INJ 2 MG/ML SYRINGE 1ML IV PRN (18:45)
[2019-07-13] MEDS ORDERED: SODIUM CHLORIDE 0.9% 1,000 ML IV SCH (18:47)
[2019-07-13 18:49] LABS: Urine Bacteria FEW /hpf (None Seen); Urine Blood Negative /uL (Negative); Urine Hyaline Cast MOD /lpf (0 - 2); Urine Mucus FEW (None Seen); Urine Specific Gravity 1.016 (1.001-1.035); Urine WBC 3 /hpf (0 - 5)
[2019-07-13] MEDS ORDERED: cefTRIAXone 1GM/50ML D5W 50 ML IV SCH (18:54)
[2019-07-13 18:56] LABS: Alcohol, Urine < 3.0 mg/dL (0-5); Amphetamine Screen, Urine NEGATIVE (NEGATIVE); Barbiturate Scree,Urine NEGATIVE (NEGATIVE); Benzodiazephine Screen, Urine NEGATIVE (NEGATIVE); Cannabinoid Screen, Urine NEGATIVE (NEGATIVE); Cocaine Screen, Urine NEGATIVE (NEGATIVE); Opiate Scree,Urine NEGATIVE (NEGATIVE); Phencyclidine Screen, Urine NEGATIVE (NEGATIVE)
[2019-07-13] MEDS ORDERED: cefTRIAXone 1GM/50ML D5W 50 ML IV ONE (19:00)
[2019-07-13] MEDS ORDERED: SODIUM ZIRCONIUM CYCL 10 GM PAK PO ONE (19:00)
[2019-07-13] MEDS ORDERED: LACTULOSE 20Gm/30ML SOLN PO PRN (19:00)
[2019-07-13] MEDS ORDERED: DEXTROSE (50%) 50ML SYRG IV PRN (19:00)
[2019-07-13] MEDS ORDERED: ACETAMINOPHEN 500 MG TAB PO PRN (19:00)
[2019-07-13] MEDS ORDERED: ONDANSETRON HCL 4 MG/2 ML VIAL IV PRN (19:00)
[2019-07-13] MEDS ORDERED: SODIUM BICARBONATE 50ML VIAL 50 ML in D5W/SOD CHL 0.45% 1,000 ML IV SCH (19:15)
[2019-07-13] MEDS ORDERED: ALBUMIN 25% 100 ML IV ONE (20:00)
[2019-07-13 20:16] LABS: Creatinine, Urine 160 mg/dL (30.0-125.0); Sodium Urine 16 mmol/L (40-220)
[2019-07-13] MEDS ORDERED: SODIUM BICARBONATE 8.4% INJ 50ML SYRINGE ONE (21:03)
[2019-07-13] MEDS: SODIUM BICARBONATE 50ML VIAL 100 ML in D5W/SOD CHL 0.45% 1,000 ML IV SCH (21:13)
[2019-07-13] MEDS: metroNIDAZOLE 500MG/100ML 100 ML IV SCH ×2 (21:35→22:37)
[2019-07-13 22:32] LABS: Basophils # (auto) 0 10 ^3/uL (0-0.2); Basophils % (auto) 0.3 % (0.0-2.0); Eosinophils # (auto) 0 10 ^3/uL (0-0.8); Eosinophils % (auto) 0.5 % (0.0-7.0); Hematocrit 23.7 % (36.0-46.0); Hemoglobin 7.8 g/dL (12.2-16.2); Lymphocytes # (auto) 0.2 10 ^3/uL (0.4-5.4); Mean Corpuscular Hemoglobin 29.9 pg (28.0-32.0); Mean Corpuscular Hgb Conc. 32.7 g/dL (32.0-36.0); Mean Corpuscular Volume 91.5 fL (80.0-100.0); Monocytes # (auto) 0.3 10 ^3/uL (0-1.3); Monocytes % (auto) 4.9 % (0.0-12.0); Neutrophils # (auto) 5.3 10 ^3/uL (1.6-8.6); Neutrophils % (auto) 90.3 % (37.0-80.0); Nucleated Red Blood Cells % 0.1 %; Platelet Count (auto) 189 10^3/uL (140-450); Red Blood Cells 2.59 10^6/uL (4.0-5.20); Red Cell Distribution Width 16.9 % (11.8-14.3); White Blood Cell 5.8 10^3/uL (4.4-10.8)
[2019-07-13] MEDS: InsuLIN REG 1unit/0.01ml Soln (100units/ml) SC SCH (23:05)
[2019-07-13] MEDS: ACCU-CHEK COMFORT CURVE STRIP VI SCH (23:06)
[2019-07-13 23:19] LABS: Albumin 2.8 g/dL (3.4-5.0); BUN/Creatinine Ratio 12.8; Calcium 7.9 mg/dL (8.5-10.1); Potassium 4.1 mmol/L (3.5-5.1)
[2019-07-13 23:24] LABS: Bilirubin, Total 0.3 mg/dL (0.2-1.0); Total Protein 6.6 g/dL (6.4-8.2)
[2019-07-14] VITALS (82 sets, daily range): BP systolic 90–134; BP diastolic 34–69
[2019-07-14 00:29] LABS: Hematocrit 23.8 % (36.0-46.0); Hemoglobin 7.3 g/dL (12.2-16.2)
[2019-07-14] MEDS ORDERED: NOREPINEPHRINE 8 MG/250ML KIT 250 ML IV ONE (01:18)
[2019-07-14] MEDS: NOREPINEPHRINE 8 MG/250ML KIT 250 ML IV SCH ×2 (01:25→12:45)
[2019-07-14] MEDS: ACCU-CHEK COMFORT CURVE STRIP VI SCH ×4 (06:38→21:47)
[2019-07-14] MEDS: InsuLIN REG 1unit/0.01ml Soln (100units/ml) SC SCH ×4 (06:39→21:50)
[2019-07-14 07:53] LABS: Basophils # (auto) 0 10 ^3/uL (0-0.2); Eosinophils # (auto) 0 10 ^3/uL (0-0.8); Lymphocytes # (auto) 0.4 10 ^3/uL (0.4-5.4); Mean Corpuscular Volume 93.3 fL (80.0-100.0); Monocytes # (auto) 0.5 10 ^3/uL (0-1.3)
[2019-07-14 07:55] LABS: Basophils % (auto) 0.4 % (0.0-2.0); Eosinophils % (auto) 0.2 % (0.0-7.0); Hematocrit 25.8 % (36.0-46.0); Hemoglobin 8.1 g/dL (12.2-16.2); Lymphocytes % (auto) 5.2 % (10.0-50.0); Mean Corpuscular Hemoglobin 29.5 pg (28.0-32.0); Mean Corpuscular Hgb Conc. 31.6 g/dL (32.0-36.0); Monocytes % (auto) 6.8 % (0.0-12.0); Neutrophils % (auto) 87.4 % (37.0-80.0); Platelet Count (auto) 266 10^3/uL (140-450); Red Blood Cells 2.76 10^6/uL (4.0-5.20); Red Cell Distribution Width 17.6 % (11.8-14.3); White Blood Cell 8.1 10^3/uL (4.4-10.8)
[2019-07-14 08:18] LABS: Potassium 4.1 mmol/L (3.5-5.1)
[2019-07-14 08:19] LABS: Potassium 4.5 mmol/L (3.5-5.1)
[2019-07-14 08:23] LABS: BUN/Creatinine Ratio 13.6; Calcium 8.5 mg/dL (8.5-10.1)
[2019-07-14 08:25] LABS: Albumin 2.6 g/dL (3.4-5.0); BUN/Creatinine Ratio 14.2; Bilirubin, Total 0.2 mg/dL (0.2-1.0); Calcium 7.7 mg/dL (8.5-10.1); Total Protein 6.5 g/dL (6.4-8.2)
[2019-07-14 08:30] LABS: % Iron Saturation 12.6 % (15-50)
[2019-07-14] MEDS: SODIUM BICARBONATE 50ML VIAL 100 ML in D5W/SOD CHL 0.45% 1,000 ML IV SCH (08:57)
[2019-07-14] MEDS: cefTRIAXone 1GM/50ML D5W 50 ML IV SCH (08:58)
[2019-07-14] MEDS: PANTOPRAZOLE 40 MG TAB PO SCH (10:00)
[2019-07-14 11:50] LABS: Hepatitis A Ab IgM Negative; Hepatitis B Core IgM Negative; Hepatitis C Antibody Negative (Negative)
[2019-07-14 11:51] LABS: Hepatitis B Surface Antigen Negative (Negative)
[2019-07-14] MEDS: metroNIDAZOLE 500MG/100ML 100 ML IV SCH ×2 (14:09→21:57)
[2019-07-14 18:42] LABS: BUN/Creatinine Ratio 15.6; Calcium 7.8 mg/dL (8.5-10.1); Potassium 3.7 mmol/L (3.5-5.1)
[2019-07-14] MEDS: SODIUM CHLORIDE 0.9% 1,000 ML IV SCH (20:30)
[2019-07-15] VITALS (67 sets, daily range): BP systolic 89–137; BP diastolic 42–85
[2019-07-15 04:18] LABS: Basophils # (auto) 0 10 ^3/uL (0-0.2); Basophils % (auto) 0.5 % (0.0-2.0); Eosinophils # (auto) 0.2 10 ^3/uL (0-0.8); Hematocrit 23.9 % (36.0-46.0); Hemoglobin 7.9 g/dL (12.2-16.2); Lymphocytes # (auto) 0.5 10 ^3/uL (0.4-5.4); Lymphocytes % (auto) 7.7 % (10.0-50.0); Mean Corpuscular Hemoglobin 29.8 pg (28.0-32.0); Mean Corpuscular Hgb Conc. 33.1 g/dL (32.0-36.0); Mean Corpuscular Volume 90.1 fL (80.0-100.0); Monocytes # (auto) 0.4 10 ^3/uL (0-1.3); Monocytes % (auto) 5.8 % (0.0-12.0); Neutrophils # (auto) 5.1 10 ^3/uL (1.6-8.6); Nucleated Red Blood Cells % 0.1 %; Platelet Count (auto) 244 10^3/uL (140-450); Red Blood Cells 2.65 10^6/uL (4.0-5.20); Red Cell Distribution Width 16.8 % (11.8-14.3); White Blood Cell 6.1 10^3/uL (4.4-10.8)
[2019-07-15 04:38] LABS: BUN/Creatinine Ratio 17.7; Potassium 3.9 mmol/L (3.5-5.1)
[2019-07-15] MEDS: metroNIDAZOLE 500MG/100ML 100 ML IV SCH ×3 (06:17→22:11)
[2019-07-15] MEDS: ACCU-CHEK COMFORT CURVE STRIP VI SCH ×4 (06:22→22:12)
[2019-07-15] MEDS: InsuLIN REG 1unit/0.01ml Soln (100units/ml) SC SCH ×4 (06:22→22:00)
[2019-07-15] MEDS: SODIUM CHLORIDE 0.9% 1,000 ML IV SCH ×2 (09:05→21:00)
[2019-07-15] MEDS: cefTRIAXone 1GM/50ML D5W 50 ML IV SCH (09:33)
[2019-07-15] MEDS: PANTOPRAZOLE 40 MG TAB PO SCH (09:33)
[2019-07-15] MEDS: HYDROcodone-ACET 5/325MG TAB PO PRN (22:11)
[2019-07-16] VITALS (16 sets, daily range): BP systolic 102–173; BP diastolic 48–92
[2019-07-16 04:39] LABS: Basophils # (auto) 0 10 ^3/uL (0-0.2); Basophils % (auto) 0.4 % (0.0-2.0); Eosinophils # (auto) 0.1 10 ^3/uL (0-0.8); Hemoglobin 7.5 g/dL (12.2-16.2); Lymphocytes # (auto) 0.4 10 ^3/uL (0.4-5.4); Monocytes # (auto) 0.2 10 ^3/uL (0-1.3); Nucleated Red Blood Cells % 0.1 %
[2019-07-16 04:41] LABS: Eosinophils % (auto) 3.5 % (0.0-7.0); Lymphocytes % (auto) 11.2 % (10.0-50.0); Mean Corpuscular Hemoglobin 29.9 pg (28.0-32.0); Mean Corpuscular Hgb Conc. 31.3 g/dL (32.0-36.0); Mean Corpuscular Volume 95.6 fL (80.0-100.0); Monocytes % (auto) 4.8 % (0.0-12.0); Neutrophils # (auto) 3.1 10 ^3/uL (1.6-8.6); Neutrophils % (auto) 80.1 % (37.0-80.0); Platelet Count (auto) 218 10^3/uL (140-450); Red Blood Cells 2.51 10^6/uL (4.0-5.20); Red Cell Distribution Width 17.5 % (11.8-14.3); White Blood Cell 3.9 10^3/uL (4.4-10.8)
[2019-07-16 04:58] LABS: Potassium 3.7 mmol/L (3.5-5.1)
[2019-07-16 05:00] LABS: BUN/Creatinine Ratio 22.6
[2019-07-16] MEDS: metroNIDAZOLE 500MG/100ML 100 ML IV SCH (06:00)
[2019-07-16] MEDS ORDERED: hydrALAZINE HCL 20 MG/ML VL IV PRN (06:45)
[2019-07-16] MEDS: InsuLIN REG 1unit/0.01ml Soln (100units/ml) SC SCH ×4 (07:00→22:00)
[2019-07-16] MEDS: ACCU-CHEK COMFORT CURVE STRIP VI SCH ×4 (07:01→22:09)
[2019-07-16] MEDS: amLODIPine BESYLATE 5 MG TAB PO SCH (07:08)
[2019-07-16] MEDS: NOREPINEPHRINE 8 MG/250ML KIT 250 ML IV SCH (08:38)
[2019-07-16] MEDS: SODIUM CHLORIDE 0.9% 1,000 ML IV SCH (08:43)
[2019-07-16] MEDS: PANTOPRAZOLE 40 MG TAB PO SCH (10:33)
[2019-07-16] MEDS: cefTRIAXone 1GM/50ML D5W 50 ML IV SCH (10:33)
[2019-07-16] MEDS: traMADol HCL 50 MG TAB PO PRN (10:34)
[2019-07-16] MEDS ORDERED: SODIUM FERR GLUC 62.5MG/5ML 125 MG in SODIUM CHL 0.9% 100 ML IV SCH (13:00)
[2019-07-16] MEDS ORDERED: ALLOPURINOL 100 MG TAB PO ONE (13:30)
[2019-07-16] MEDS ORDERED: levoFLOXacin 500 MG TAB PO SCH (13:30)
[2019-07-16] MEDS: IRON SUCROSE COMPLEX 200 MG in SODIUM CHL 0.9% 100 ML IV SCH (18:06)
[2019-07-16] MEDS: SERTRALINE HCL 50 MG TAB PO SCH (18:06)
[2019-07-16] MEDS ORDERED: ATORVASTATIN 20 MG TAB PO SCH (22:00)
[2019-07-16] MEDS: APIXABAN 5 MG TAB PO SCH (22:08)
[2019-07-16] MEDS: ALLOPURINOL 100 MG TAB PO SCH (22:09)
[2019-07-16] MEDS: HYDROcodone-ACET 5/325MG TAB PO PRN (22:10)
[2019-07-17] MEDS: traMADol HCL 50 MG TAB PO PRN (03:45)
[2019-07-17 04:40] VITALS: BP 149/84
[2019-07-17 05:13] VITALS: BP 177/88
[2019-07-17 06:06] LABS: Hemoglobin 8.4 g/dL (12.2-16.2)
[2019-07-17 06:09] LABS: Hematocrit 25.5 % (36.0-46.0); Mean Corpuscular Hemoglobin 30.2 pg (28.0-32.0); Mean Corpuscular Hgb Conc. 33.1 g/dL (32.0-36.0); Mean Corpuscular Volume 91.3 fL (80.0-100.0); Platelet Count (auto) 285 10^3/uL (140-450); Red Blood Cells 2.79 10^6/uL (4.0-5.20); Red Cell Distribution Width 16.8 % (11.8-14.3); White Blood Cell 5.9 10^3/uL (4.4-10.8)
[2019-07-17 06:16] LABS: Band Neutrophils % (manual) 0; Basophils % (manual) 0 (0.0-2.0); Blast Cells 0; Metamyelocytes % 0; Myelocytes % 0; Promyelocytes % 0; Reactive Lymphocytes 0
[2019-07-17] MEDS: ACCU-CHEK COMFORT CURVE STRIP VI SCH ×2 (06:19→11:47)
[2019-07-17] MEDS: InsuLIN REG 1unit/0.01ml Soln (100units/ml) SC SCH ×2 (06:20→11:30)
[2019-07-17] MEDS: HYDROcodone-ACET 5/325MG TAB PO PRN (06:21)
[2019-07-17 06:25] LABS: Calcium 8.9 mg/dL (8.5-10.1); Potassium 3.5 mmol/L (3.5-5.1)
[2019-07-17 06:54] LABS: Eosinophils % (manual) 1 (0-7); Lymphocytes % (manual) 7 (10.0-50.0); Monocytes % (manual) 3 (0-12)
[2019-07-17 09:00] VITALS: BP 140/71
[2019-07-17] MEDS: APIXABAN 5 MG TAB PO SCH (09:43)
[2019-07-17] MEDS: PANTOPRAZOLE 40 MG TAB PO SCH (09:44)
[2019-07-17] MEDS: amLODIPine BESYLATE 5 MG TAB PO SCH (09:45)
[2019-07-17] MEDS: SERTRALINE HCL 50 MG TAB PO SCH (09:46)
[2019-07-17] MEDS: ALLOPURINOL 100 MG TAB PO SCH (09:46)
[2019-07-17] MEDS: IRON SUCROSE COMPLEX 200 MG in SODIUM CHL 0.9% 100 ML IV SCH (11:52)
[2019-07-17] MEDS ORDERED: LEVO-28 PO (12:21)
[2019-07-17] MEDS ORDERED: ATO40T PO (12:21)
[2019-07-17 12:59] VITALS: BP 132/70
[2019-07-17 13:00] VITALS: BP 151/92
== END 2019-07-17 14:10 | disposition home or self-care (01) | DRG 871 ==
LOC: ER 15:47 → EDBD 15:47 → TELE 15:48 → ICU WEST 07-14 04:02 → WEST WING 07-16 08:21 → TELE-WESTW 07-16 08:30
PROVIDERS: ADMIT Internal Medicine; ATTEND Hospitalist
DX: A41.9 Sepsis, unspecified organism (principal); R65.21 Severe sepsis with septic shock; N17.0 Acute kidney failure with tubular necrosis; G93.49 Other encephalopathy; N13.6 Pyonephrosis; N18.5 Chronic kidney disease, stage 5; E44.0 Moderate protein-calorie malnutrition; I48.92 Unspecified atrial flutter; I12.0 Hypertensive chronic kidney disease with stage 5 chronic kidney disease or end stage renal disease; D63.8 Anemia in other chronic diseases classified elsewhere; E87.5 Hyperkalemia; G89.4 Chronic pain syndrome; I25.10 Atherosclerotic heart disease of native coronary artery without angina pectoris; E78.5 Hyperlipidemia, unspecified; E86.0 Dehydration; E11.22 Type 2 diabetes mellitus with diabetic chronic kidney disease; F32.9 Major depressive disorder, single episode, unspecified; D50.9 Iron deficiency anemia, unspecified; I48.0 Paroxysmal atrial fibrillation; M10.9 Gout, unspecified; Z90.710 Acquired absence of both cervix and uterus; Z68.28 Body mass index [BMI] 28.0-28.9, adult; Z82.49 Family history of ischemic heart disease and other diseases of the circulatory system; Z95.1 Presence of aortocoronary bypass graft; Z83.3 Family history of diabetes mellitus
CPT/HCPCS: 36415; 36600; 70450; 71045; 73090; 73100; 73200; 74176; 76775; 80048; 80053; 80074; 80307; 81001; 82270; 82570; 82805; 82962; 83036; 83540; 83550; 83690; 83735; 83880; 83970; 84100; 84300; 84443; 84484; 85007; 85014; 85018; 85025; 85027; 85045; 85610; 85652; 85730; 86141; 87040; 87081; 87086; 93005; 93971; 94640; 96361; 96374; 96375; G0378; J0696; J1756; J1815; J2405; J3490; J7060; P9047

== ENCOUNTER 2019-12-03 10:59 | Inpatient (IN) | payer BC ==
[~2019-12-03] VITALS: Ht 304.8 cm; Wt 71.2 kg
[2019-12-03] MEDS: SODIUM ZIRCONIUM CYCL 10 GM PAK PO SCH (06:18)
[~2019-12-03 10:59] MED LIST changes: -CEL100T PO; +LEVO-28 PO
[2019-12-03] MEDS ORDERED: SODIUM CHLORIDE 0.9% 1,000 ML IVB ONE ×2 (12:00→12:15)
[2019-12-03] MEDS ORDERED: SODIUM CHLORIDE 0.9% 1,000 ML IV ONE ×2 (12:00→15:45)
[2019-12-03 12:11] LABS: Basophils # (auto) 0.1 10 ^3/uL (0-0.2); Basophils % (auto) 0.6 % (0.0-2.0); Eosinophils # (auto) 0 10 ^3/uL (0-0.8); Hematocrit 33.4 % (36.0-46.0); Hemoglobin 10.4 g/dL (12.2-16.2); Lymphocytes # (auto) 0.2 10 ^3/uL (0.4-5.4); Lymphocytes % (auto) 2.4 % (10.0-50.0); Mean Corpuscular Hemoglobin 30.4 pg (28.0-32.0); Mean Corpuscular Hgb Conc. 31.3 g/dL (32.0-36.0); Mean Corpuscular Volume 97.3 fL (80.0-100.0); Monocytes # (auto) 0.2 10 ^3/uL (0-1.3); Monocytes % (auto) 1.9 % (0.0-12.0); Neutrophils # (auto) 8.5 10 ^3/uL (1.6-8.6); Neutrophils % (auto) 95.1 % (37.0-80.0); Platelet Count (auto) 278 10^3/uL (140-450); Red Blood Cells 3.43 10^6/uL (4.0-5.20); Red Cell Distribution Width 16.9 % (11.8-14.3)
[2019-12-03] MEDS ORDERED: ACETAMINOPHEN 325 MG TAB PO ONE (12:15)
[2019-12-03 12:29] LABS: INR 1.18 (0.9-1.15); Partial Thromboplastin Time 33.2 sec (23.0-31.2)
[2019-12-03 12:41] LABS: Albumin 4.2 g/dL (3.4-5.0)
[2019-12-03 12:46] LABS: Bilirubin, Total 0.3 mg/dL (0.2-1.0); Potassium 7.4 mmol/L (3.5-5.1); Total Protein 8.3 g/dL (6.4-8.2)
[2019-12-03 13:10] LABS: Urine Bacteria MANY /hpf (None Seen); Urine Blood 2+ /uL (Negative); Urine WBC 5274 /hpf (0 - 5); Urine WBC Clumps PRESENT /hpf (None Seen)
[2019-12-03] MEDS ORDERED: SODIUM BICARBONATE 8.4% INJ 50ML SYRINGE IV ONE (13:15)
[2019-12-03] MEDS ORDERED: DEXTROSE (50%) 50ML SYRG IV ONE (13:15)
[2019-12-03] MEDS ORDERED: InsuLIN REG 1unit/0.01ml Soln (100units/ml) IV ONE (13:15)
[2019-12-03] MEDS ORDERED: SODIUM BICARBONATE 8.4 % INJ 50ML VIAL IV ONE ×2 (13:15→14:45)
[2019-12-03 13:20] LABS: Urine Specific Gravity 1.015 (1.001-1.035)
[2019-12-03] MEDS ORDERED: MORPHINE SULF INJ 2 MG/ML SYRINGE 1ML IV PRN ×2 (14:45→15:45)
[2019-12-03] MEDS ORDERED: NITROGLYCERIN 0.4 MG SL TAB SL PRN ×2 (14:45→15:45)
[2019-12-03] MEDS ORDERED: SODIUM BICARBONATE 50ML VIAL 150 ML in D5W 5% 1,000 ML IV ONE (14:45)
[2019-12-03] MEDS ORDERED: cefTRIAXone 1GM/50ML D5W 50 ML IV ONE (15:45)
[2019-12-03] MEDS ORDERED: SODIUM CHLORIDE 0.9% 250 ML IV ONE (15:45)
[2019-12-03] MEDS ORDERED: DEXTROSE (50%) 50ML SYRG IV PRN (15:45)
[2019-12-03 16:10] LABS: Protein, Urine 218.6 mg/dL (0.0-11.9)
[2019-12-03 16:24] LABS: BUN/Creatinine Ratio 10.4; Calcium 6.8 mg/dL (8.5-10.1)
[2019-12-03 16:28] LABS: Potassium 6.1 mmol/L (3.5-5.1)
[2019-12-03] MEDS: ACCU-CHEK COMFORT CURVE STRIP VI SCH ×2 (17:00→22:00)
[2019-12-03] MEDS: InsuLIN REG 1unit/0.01ml Soln (100units/ml) SC SCH ×2 (17:00→22:00)
[2019-12-03 21:16] LABS: Albumin 3.5 g/dL (3.4-5.0); Calcium 6.1 mg/dL (8.5-10.1)
[2019-12-03 21:19] LABS: Bilirubin, Total 0.3 mg/dL (0.2-1.0); Total Protein 6.7 g/dL (6.4-8.2)
[2019-12-03 21:20] LABS: BUN/Creatinine Ratio 11.4
[2019-12-03] MEDS ORDERED: NOREPINEPHRINE 8 MG/250ML KIT 250 ML IV SCH (21:45)
[2019-12-04] VITALS (25 sets, daily range): BP systolic 82–116; BP diastolic 46–66
[2019-12-04] MEDS: SODIUM ZIRCONIUM CYCL 10 GM PAK PO SCH ×2 (00:34→08:22)
[2019-12-04 06:42] LABS: Hematocrit 31.2 % (36.0-46.0); Hemoglobin 9.9 g/dL (12.2-16.2); Mean Corpuscular Hemoglobin 30.5 pg (28.0-32.0); Mean Corpuscular Hgb Conc. 31.8 g/dL (32.0-36.0); Mean Corpuscular Volume 95.7 fL (80.0-100.0); Platelet Count (auto) 284 10^3/uL (140-450); Red Blood Cells 3.27 10^6/uL (4.0-5.20); White Blood Cell 8.1 10^3/uL (4.4-10.8)
[2019-12-04 06:52] LABS: Band Neutrophils % (manual) 0; Basophils % (manual) 0 (0.0-2.0); Blast Cells 0; Myelocytes % 0; Promyelocytes % 0; Reactive Lymphocytes 0
[2019-12-04 07:08] LABS: Potassium 4.7 mmol/L (3.5-5.1)
[2019-12-04 07:18] LABS: Eosinophils % (manual) 3 (0-7); Lymphocytes % (manual) 10 (10.0-50.0); Metamyelocytes % 1; Monocytes % (manual) 2 (0-12)
[2019-12-04 07:22] LABS: Albumin 3.5 g/dL (3.4-5.0); BUN/Creatinine Ratio 11.1; Bilirubin, Total 0.3 mg/dL (0.2-1.0)
[2019-12-04 07:45] LABS: Calcium 5.8 mg/dL (8.5-10.1)
[2019-12-04] MEDS ORDERED: CALCIUM GLUC 4.65meq/50ml D5AE 50 ML IV ONE ×2 (08:30)
[2019-12-04] MEDS: InsuLIN REG 1unit/0.01ml Soln (100units/ml) SC SCH ×4 (08:45→21:43)
[2019-12-04] MEDS: ACCU-CHEK COMFORT CURVE STRIP VI SCH ×4 (08:48→21:42)
[2019-12-04] MEDS: cefTRIAXone 1GM/50ML D5W 50 ML IV SCH (09:55)
[2019-12-04] MEDS: SODIUM BICARBONATE 50ML VIAL 150 ML in D5W 5% 1,000 ML IV SCH ×2 (12:10→21:00)
[2019-12-04] MEDS: FUROSEMIDE 100 MG/10ML VIAL IV SCH ×2 (12:52→18:01)
--- NOTE | 2019-12-04 16:45 | NUR ---
ADMIT NOTE RECEIVED PATIENT FROM ER VIA GURNEY ALERT AND COOPERATIVE, ORIENTATED TO SELF, SOMEWHAT CONFUSED TO TIME AND PLACE, FOLLOWS COMMAND, IV AT LEFT IJ INTACT, SITE WITH BLOODY DISCHARGED, DRESSING CHANGED UNDER ASEPTIC TECHNIQUE AND BLOOD WASHED OFF, MOVED ARMS WELL DESPITE DEFORMITY AT RIGHT ELBOW, LUNGS CLEAR, SATURATION GOOD.
--- NOTE | 2019-12-04 19:20 | NUR ---
OPENING/INITIAL CONTACT RECEIVED REPORT FROM LAMBERTO KELSEY AND ASSUMED CARE OF PT. PT IS ASLEEP IN BED AND EASILY AROUSABLE. SHE DOES KNOW HER NAME,BIRTHDAY, AND THAT SHE IS CURRENTLY AT [facility]. WHEN ASKED WHY SHE'S BEEN HOSPITALIZED SHE STATES THAT SHE HAS BEEN "FEELING WEIRD." PT IS ABLE TO ANSWER SIMPLE QUESTIONS AND FOLLOW SIMPLE COMMANDS, BUT BECOMES GROGGY AND GOES BACK TO SLEEP. NO COMPLAINTS OF PAIN AT THIS TIME. VITAL SIGNS WNL- SR ON MONITOR, 2L NC APPLIED. SODIUM BICARB GTT RUNNING PER MD ORDERS. GARCIA CATHETER IN PLACE AND DRAINING CLEAR, YELLOW URINE APPROPRIATELY. SCDS APPLIED TO BLE. RIJ TLC IN PLACE CONFIRMED VIA XRAY. SKIN IS INTACT WITH R ELBOW DEFORMITY AND SCANT BRUISING TO BILATERAL ARMS. BED IS LOCKED AND IN LOWEST POSITION. EDUCATED PT ON POC, FALL PRECAUTIONS, AND CALL LIGHT. SHE STATES THAT SHE AMBULATES INDEPENDENTLY AT HOME WITHOUT ASSISTIVE DEVICES. WILL CONTINUE TO MONITOR AND ASSESS PT. Addendum: 12/04/19 at 2049 by ROSANNA PILLAI RN *LEFT ELBOW DEFORMITY
[2019-12-04] MEDS: HEPARIN SODIUM (PORCINE) 5000 UNITS/ML 1ML VIAL SC SCH (21:33)
--- NOTE | 2019-12-04 22:21 | NUR ---
PT CARE PT PLACED ON BEDPAN AND HAD MEDIUM SIZED, LOOSE, BROWN BM. CLEANED PT APPROPRIATELY- Z GUARD AND PREVENTATIVE OPTIFOAM APPLIED TO SACRAL AREA. POSTERIOR SKIN ASSESSED AND IN TACT WITH NO CHANGES. PARTIAL CB CHANGE DONE. PT ASSISTED WITH TURNING TO BOTH SIDES AND TOLERATED ACTIVITY WITH NO DISTRESS.
[2019-12-05] VITALS (41 sets, daily range): BP systolic 94–162; BP diastolic 48–100
[2019-12-05 04:14] LABS: Basophils # (auto) 0 10 ^3/uL (0-0.2); Mean Corpuscular Hemoglobin 30.2 pg (28.0-32.0); Monocytes # (auto) 0.4 10 ^3/uL (0-1.3); Neutrophils # (auto) 2.9 10 ^3/uL (1.6-8.6); Red Cell Distribution Width 15.9 % (11.8-14.3); White Blood Cell 3.9 10^3/uL (4.4-10.8)
[2019-12-05 04:17] LABS: Basophils % (auto) 0.2 % (0.0-2.0); Eosinophils # (auto) 0.1 10 ^3/uL (0-0.8); Eosinophils % (auto) 3.7 % (0.0-7.0); Hemoglobin 8.3 g/dL (12.2-16.2); Lymphocytes # (auto) 0.4 10 ^3/uL (0.4-5.4); Lymphocytes % (auto) 10.7 % (10.0-50.0); Mean Corpuscular Hgb Conc. 33.3 g/dL (32.0-36.0); Mean Corpuscular Volume 90.6 fL (80.0-100.0); Monocytes % (auto) 10.6 % (0.0-12.0); Neutrophils % (auto) 74.8 % (37.0-80.0); Platelet Count (auto) 196 10^3/uL (140-450); Red Blood Cells 2.76 10^6/uL (4.0-5.20)
[2019-12-05 05:01] LABS: Calcium 5.9 mg/dL (8.5-10.1); Potassium 2.7 mmol/L (3.5-5.1)
[2019-12-05 05:04] LABS: BUN/Creatinine Ratio 14.4
--- NOTE | 2019-12-05 05:24 | NUR ---
[facility] PAGED FOR CRITICAL LAB VALUES. AWAITING CALLBACK.
[2019-12-05] MEDS: FUROSEMIDE 100 MG/10ML VIAL IV SCH (05:44)
[2019-12-05] MEDS: SODIUM BICARBONATE 50ML VIAL 150 ML in D5W 5% 1,000 ML IV SCH (06:09)
[2019-12-05] MEDS: ACCU-CHEK COMFORT CURVE STRIP VI SCH ×4 (06:31→22:08)
[2019-12-05] MEDS: InsuLIN REG 1unit/0.01ml Soln (100units/ml) SC SCH ×4 (06:32→22:00)
--- NOTE | 2019-12-05 06:49 | NUR ---
ORAL INTAKE PT DRANK SMALL AMOUNT OF WATER 125 ML AND ATE 1 APPLESAUCE THIS SHIFT. TOLERATED WELL.
--- NOTE | 2019-12-05 07:00 | NUR ---
start of shift Received patient awake and cooperative, asked to use bedpan for bm and bedpan given, patient had small soft bm, cleansed and zgard cream applied to bottom, positioned to side with pillow support. tolerated sip of water, meeks intact and draining, warm blanket for comfort. Call light with patient and shown use to call for nurse.
[2019-12-05] MEDS: cefTRIAXone 1GM/50ML D5W 50 ML IV SCH (08:56)
[2019-12-05] MEDS: POTASSIUM CHL 20MEQ/100ML 100 ML IV SCH ×7 (08:59→23:26)
--- NOTE | 2019-12-05 09:00 | NUR ---
RN Notes Patient was drinking coffee and choked on the fluid, emesis small amount, cleansed and placed with head up. Relaxed after, food tray removed. Patient has no appetite for now.
[2019-12-05] MEDS: HEPARIN SODIUM (PORCINE) 5000 UNITS/ML 1ML VIAL SC SCH ×2 (10:26→22:06)
[2019-12-05] MEDS: LACTATED RINGER'S 1,000 ML IV SCH (10:49)
[2019-12-05] MEDS: ACETAMINOPHEN 325 MG TAB PO PRN (12:59)
[2019-12-05] MEDS ORDERED: ASPirin-EC 81 mg tab PO ONE (13:00)
[2019-12-05] MEDS ORDERED: FUROSEMIDE 100 MG/10ML VIAL IV SCH (13:00)
--- NOTE | 2019-12-05 13:00 | NUR ---
RN NOTES PATIENT TOOK TYLENOL PO WITH WATER, NO PROBLEM SWALLOWING THIS TIME AND TOLERATED PO MEDICINE.
[2019-12-05] MEDS ORDERED: SODIUM FERR GLUC 62.5MG/5ML 125 MG in SODIUM CHL 0.9% 100 ML IV ONE (14:15)
--- NOTE | 2019-12-05 14:35 | NUR ---
RN NOTES PATIENT RESTING IN BED, HEAD ACHE RELIEVED FROM TYLENOLTAKEN PO. TRYING TO NAP.
[2019-12-05 14:49] LABS: Calcium 6.4 mg/dL (8.5-10.1)
[2019-12-05 14:51] LABS: BUN/Creatinine Ratio 16.5
[2019-12-05 15:18] LABS: Potassium 2.9 mmol/L (3.5-5.1)
[2019-12-05] MEDS ORDERED: SOD CHL 0.9%/ KCL 20MEQ 1,000 ML IV SCH (15:30)
[2019-12-05] MEDS: FUROSEMIDE 40 MG/4 ML VIAL IV SCH (18:00)
--- NOTE | 2019-12-05 18:45 | NUR ---
SHIFT SUMMARY PATIENT REMAINS ALERT, OCCASIONAL CONFUSION UPON WAKING UP BUT COOPERATIVE WITH STAFF, HAD 4 BM SOFT TODAY, OUTPUT GOOD, APPETITE REMAINS POOR, NO TASTE DUE TO ELEVATED CREATININE. POSITIONS SELF SIDE TO SIDE, ZGARD TO BOTTOM TO PREVENT SKIN BREAK DOWN. IV'S INFUSING WELL SITE GOOD.
--- NOTE | 2019-12-05 19:30 | NUR ---
OPENING RECEIVED REPORT FROM LAMBERTO KELSEY AND ASSUMED CARE OF PT. PT IS ASLEEP IN BED AND EASILY AROUSABLE. SHE IS A0X4. NO COMPLAINTS OF PAIN AT THIS TIME. VITAL SIGNS WNL- SR ON MONITOR, 2L NC APPLIED. FLUIDS RUNNING PER MD ORDERS. GARCIA CATHETER IN PLACE AND DRAINING CLEAR, YELLOW URINE APPROPRIATELY. SCDS APPLIED TO BLE. RIJ TLC IN PLACE CONFIRMED VIA XRAY. SKIN IS INTACT WITH L ELBOW DEFORMITY AND SCANT BRUISING TO BILATERAL ARMS. BED IS LOCKED AND IN LOWEST POSITION. EDUCATED PT ON POC, FALL PRECAUTIONS, AND CALL LIGHT. WILL CONTINUE TO MONITOR AND ASSESS PT.
[2019-12-05 20:17] LABS: Magnesium 2.1 mg/dL (1.6-2.6); Potassium 3.1 mmol/L (3.5-5.1)
--- NOTE | 2019-12-05 20:40 | NUR ---
NEPHROLOGY PAGED REGARDING LAB VALUES FROM 1900 DRAW. AWAITING CALLBACK.
--- NOTE | 2019-12-05 21:15 | NUR ---
MD FULLER PLACED ORDERS FOR 40 MEQ OF POTASSIUM IV. WILL ADMINISTER.
[2019-12-05] MEDS: POTASSIUM CHL 20MEQ/100ML 200 ML IV ONE ×2 (21:51→22:12)
[2019-12-05] MEDS: ATORVASTATIN 20 MG TAB PO SCH (21:52)
[2019-12-06] VITALS (35 sets, daily range): BP systolic 148–176; BP diastolic 70–97
[2019-12-06] MEDS: LACTATED RINGER'S 1,000 ML IV SCH (00:06)
--- NOTE | 2019-12-06 00:24 | NUR ---
PER PT, BROUGHT IN MORE OF HER BELONGINGS TODAY- INCLUDES BOTTOM DENTURES AND CELLPHONE.
--- NOTE | 2019-12-06 02:14 | NUR ---
PT OFFERED SNACK AND WATER TO DRINK. SHE REFUSED AT THIS TIME. WILL CONTINUE TO ENCOURAGE PO INTAKE.
--- NOTE | 2019-12-06 04:37 | NUR ---
PARTIAL CB CHANGE DONE. PT REPOSITIONED IN BED. TOLERATED WELL WITH NO DISTRESS.
[2019-12-06 04:50] LABS: BUN/Creatinine Ratio 19.7; Magnesium 1.6 mg/dL (1.6-2.6); Potassium 3.2 mmol/L (3.5-5.1)
[2019-12-06] MEDS: FUROSEMIDE 40 MG/4 ML VIAL IV SCH (05:45)
[2019-12-06] MEDS: InsuLIN REG 1unit/0.01ml Soln (100units/ml) SC SCH ×4 (06:35→21:33)
[2019-12-06] MEDS: ACCU-CHEK COMFORT CURVE STRIP VI SCH ×4 (06:35→21:33)
--- NOTE | 2019-12-06 07:17 | NUR ---
REPORT GIVEN TO LAMBERTO DHALIWAL, CARE ENDORSED.
--- NOTE | 2019-12-06 08:57 | NUR ---
Family updated on pt status Family of ARIADNE HANEYDA updated on patient's status and condition after password verification. All questions and concerns addressed. Patient's spouse Cl verbalized understanding stated he would reach out to her on her cell phone.
[2019-12-06] MEDS: cefTRIAXone 1GM/50ML D5W 50 ML IV SCH (09:01)
[2019-12-06] MEDS: ASPirin-EC 81 mg tab PO SCH ×2 (09:03→11:20)
[2019-12-06] MEDS: HEPARIN SODIUM (PORCINE) 5000 UNITS/ML 1ML VIAL SC SCH ×2 (09:08→11:20)
--- NOTE | 2019-12-06 09:54 | NUR ---
BM/ANDREA HOSPITALIST PATIENT CLEANSED OF MODERATE SIZE, LOOSE GREEN STOOL - CAVILON APPLIED TO RECTAL AREA TO MAINTAIN SKIN INTEGRITY WELL ZGUARD. COMPLETE BEDDING CHANGED, PATIENT TOLERATED WELL. RUTHANN HOSPITALIST, DR Dona ARROYO TO UPDATE ON PATIENT'S STATUS AND OBTAIN ORDERS, AWAITING RESPONSE.
--- NOTE | 2019-12-06 10:05 | NUR ---
RETURN CALL FROM HOSPITALIST DR Dona ARROYO UPDATED ON PATIENT'S STATUS, MORNING LABS AND REPORT OF ABDOMINAL/BACK PAIN AND NAUSEA. ORDERS RECEIVED FOR PAIN AND NAUSEA MEDICATION INCLUDING POTASSIUM AND MAGNESIUM REPLACEMENT. PER DR ARROYO, DR POLK COVERING CARDIOLOGY FOR DR MANNING. WILL REACH OUT DR PLOK TO NOTIFY OF NEED TO READ ECHO RESULTS AND POSSIBLE IF OK FOR TELE DOWNGRADE PREVIOUSLY NOTED BY DR MANUEL.
[2019-12-06] MEDS ORDERED: HYDROcodone-ACET 10/325MG TAB PO PRN (10:15)
--- NOTE | 2019-12-06 10:15 | NUR ---
PAGED CARDIOLOGY DR POLK TO NOTIFY OF ECHO COMPLETE FOR READING, ELEVATED SBP IN THE 150's - 160's and TO NOTIFY OF LACTATED RINGER HELD SECONDARY TO ELEVATED BP ORDERED FROM NEPHROLOGY AND LASIX ADMINISTRATION, AWAITING RESPONSE.
--- NOTE | 2019-12-06 10:20 | NUR ---
PAGED NEPHROLOGY TO NOTIFY OF ELEVATED BLOOD PRESSURE AND LACTATE RINGER HELD SINCE NOC SHIFT, MESSAGE LEFT WITH ERICKA AT ANSWERING SERVICE - DR FULLER GOLF CLUB MANAGER, AWAITING RESPONSE.
--- NOTE | 2019-12-06 10:48 | NUR ---
Nutrition Assessment Est energy needs 4918-6796 kcal (20-25 kcal/kg BW 73.6kg) Est protein needs 44-59g (0.6-0.8g/kg BW 73.6kg r/t elevated RFTs, CKD no HD) Will reassess prn. Addendum: 12/06/19 at [address] Amended: Links added.
[2019-12-06] MEDS: POTASSIUM CHL 20MEQ/100ML 100 ML IV SCH ×3 (11:21→22:12)
[2019-12-06] MEDS: MAGNESIUM SULFATE 1GM/100ML 100 ML IV SCH ×2 (11:21→12:48)
[2019-12-06] MEDS: PROMETHAZINE HCL 25 MG/ML 1ML IV PRN ×2 (11:22→21:34)
[2019-12-06] MEDS ORDERED: PANTOPRAZOLE 40 MG/10 ML VIAL INJ IV ONE (11:45)
--- NOTE | 2019-12-06 11:50 | NUR ---
RETURN CALL FROM CARDIOLOGY DR POLK UPDATED ON PATIENT'S STATUS, ELEVATED BLOOD PRESSURE AND HOME BP MEDS TAKEN VERIFIED BY PATIENT. MD ALSO AWARE OF PENDING ECHO TO BE READ AND MAINTENANCE FLUIDS PREVIOUSLY ORDERED BY NEPHROLOGY WITH LASIX BID. MD VERBALIZED UNDERSTANDING AND AUTHORIZED DOWNGRADE TO TELE AND ORDERED AMLODIPINE 5 MG PO DAILY.
--- NOTE | 2019-12-06 12:20 | NUR ---
BM/COMFORT/OUT OF BED PATIENT CLEANSED OF SMALL, LOOSE GREEN STOOL, COMFORT MEASURES PROVIDED, CHUX CHANGED. PATIENT ASSISTED TO BEDSIDE CHAIR, PATIENT ABLE TO AMBULATE WITH STANDBY ASSISTANCE. PATIENT PROVIDED WITH LUNCH. FALL AND SAFETY PRECAUTIONS IN PLACE.
--- NOTE | 2019-12-06 12:31 | NUR ---
CONTACT PHARMACY/PENDING MEDICATION SPOKE WITH BUSINESS RISK CONSULTANT JANET, REQUESTED NOON DOSE OF FERRLECIT, ROSANGELA STATED SHE WOULD LOOK INTO IT AND SEND TO UNIT.
[2019-12-06] MEDS ORDERED: hydrALAZINE HCL 10 MG TAB PO SCH (13:30)
[2019-12-06] MEDS ORDERED: LOSARTAN POTASSIUM 50 MG TAB PO ONE (13:30)
[2019-12-06] MEDS: SODIUM FERR GLUC 62.5MG/5ML 125 MG in SODIUM CHL 0.9% 100 ML IV SCH (13:34)
--- NOTE | 2019-12-06 13:41 | NUR ---
NEPHROLOGY VISITS DR FULLER, UPDATED ON PATIENT'S STATUS AND DR POLK'S ORDERS AND RECOMMENDATIONS TO "LEAVE HER ALONE" WHEN GIVING BP MEDICATIONS. DR FULLER ALSO AWARE OF ELECTROLYTE REPLACEMENT. MD VERBALIZED UNDERSTANDING. PATIENT CONTINUES TO SIT OUT OF BED IN BEDSIDE CHAIR, RESTING WITH EYES CLOSED. CALL LIGHT AND ALL PERSONAL BELONGINGS WITHIN REACH. FALL AND SAFETY PRECAUTIONS IN PLACE.
--- NOTE | 2019-12-06 14:42 | NUR ---
CARDIOLOGY VISITS DR POLK AT BEDSIDE, DISCUSSED PLAN OF CARE WITH PATIENT, PATIENT VERBALIZED UNDERSTANDING. DR POLK AWARE OF DR FULLER'S ORDERS FOR BLOOD PRESSURE MEDICATION AND POSSIBLE DOWNGRADE - PENDING HOSPITALIST TO SEE. DR POLK STATED PATIENT OK TO BE DOWNGRADED TO TELE, PAGED DR ARROYO TO NOTIFY. DR POLK ALSO VERBALIZED THAT HES OK WITH PATIENT'S BLOOD PRESSURE BEING A LITTLE HIGH DUE TO HER HEART CONDITION - DECREASE ASPIRIN TO 81 MG PO DAILY.
--- NOTE | 2019-12-06 15:17 | NUR ---
PAGED HOSPITALIST/RETURN TO BED PATIENT ASSISTED TO BED, PATIENT REPORTING CHRONIC BACK PAIN AND ASKED THIS NURSE TO CALL DOCTOR TO REQUEST ANOTHER HARROLD, MESSAGE LEFT FOR DR ARROYO AND TO NOTIFY OF DR POLK'S RECOMMENDATIONS OF TELE DOWNGRADE, AWAITING RESPONSE.
[2019-12-06] MEDS ORDERED: amLODIPine BESYLATE 5 MG TAB PO ONE (16:00)
--- NOTE | 2019-12-06 17:14 | NUR ---
RETURN CALL FROM HOSPITALIST DR Dona ARROYO NOTIFIED OF DR POLK'S AUTHORIZATION FOR DOWNGRADE TO TELE AND PATIENT CONTINUE TO REPORT CHRONIC BACK PAIN AND REQUESTING ADDITIONAL NORCO's. ORDERS FOR TELE DOWNGRADE RECEIVED AND TO CHANGE NORCO TO Q6H, PRN FOR SEVERE PAIN. ORDERS WILL BE CARRIED OUT, DIRECTOR OF SALES AND MARKETING AND CHARGE NURSE AWARE.
[2019-12-06] MEDS: HYDROcodone-ACET 10/325MG TAB PO PRN (17:29)
[2019-12-06] MEDS ORDERED: LORazepam 2MG/ML-1ML VIAL ONE (18:06)
--- NOTE | 2019-12-06 19:43 | NUR ---
DR. ARROYO AT BEDSIDE: MADE AWARE OF NOSE BLEEDS AND LOW HGB, ORDERS TO STOP HEPARIN SUB Q BID. ORDERS TO START PIV, AND REMOVE CVC. ORDER FOR PT EVAL. ORDERS TO RECHECK LABS, AND CALL MD WITH RESULTS.
--- NOTE | 2019-12-06 20:00 | NUR ---
22 G PIV STARTED TO RIGHT FOREARM BY LAMBERTO ROBERTS
[2019-12-06 20:06] LABS: Basophils # (auto) 0 10 ^3/uL (0-0.2); Basophils % (auto) 0.3 % (0.0-2.0); Eosinophils # (auto) 0.1 10 ^3/uL (0-0.8); Eosinophils % (auto) 2.1 % (0.0-7.0); Hematocrit 27.4 % (36.0-46.0); Hemoglobin 9.1 g/dL (12.2-16.2); Lymphocytes # (auto) 0.4 10 ^3/uL (0.4-5.4); Lymphocytes % (auto) 10.3 % (10.0-50.0); Mean Corpuscular Hemoglobin 30.1 pg (28.0-32.0); Mean Corpuscular Hgb Conc. 33.2 g/dL (32.0-36.0); Mean Corpuscular Volume 90.8 fL (80.0-100.0); Monocytes # (auto) 0.4 10 ^3/uL (0-1.3); Monocytes % (auto) 12.7 % (0.0-12.0); Neutrophils # (auto) 2.6 10 ^3/uL (1.6-8.6); Neutrophils % (auto) 74.6 % (37.0-80.0); Nucleated Red Blood Cells % 2.1 %; Platelet Count (auto) 191 10^3/uL (140-450); Red Blood Cells 3.02 10^6/uL (4.0-5.20); Red Cell Distribution Width 15.4 % (11.8-14.3); White Blood Cell 3.5 10^3/uL (4.4-10.8)
[2019-12-06 20:28] LABS: Albumin 3.1 g/dL (3.4-5.0); Calcium 7.9 mg/dL (8.5-10.1)
--- NOTE | 2019-12-06 20:30 | NUR ---
OPENING NOTE: A&OX4. PLEASANT AND COOPERATIVE. NSR, HR 70s. BP 140-150s. LS CTA, EVEN AND UNLABORED BREATHING. SpO2> 92%. NOTED TO DESATURATE IN HER SLEEP. ABD SOFT. HYPOACTIVE BS. 3X BM PER DAY SHIFT. POOR APPETITE. INTERMITTENT NAUSEA. GARCIA PATENT AND INTACT, REQUESTING TO LEAVE GARCIA IN UNTIL TOMORROW. SEE SKIN AND WOUND FLOWSHEET FOR ASSESSMENT. RIGHT FOREARM 22 G PIV, CDI AND PATENT WITH BLOOD RETURN. REPORTS BACK PAIN BUT KNOWN TO HAVE CHRONIC BACK PAIN. DENIES CHEST PAIN, SHORTNESS OF BREATH, DIZZINESS, N/V, NUMBNESS AND TINGLING AT THIS TIME. REORIENTED NEEDED. MAINTAINED PATIENT SAFETY: BED LOCKED AND IN THE LOWEST POSITION, FREQUENT VISUAL CHECKS, CALL LIGHT WITHIN REACH
[2019-12-06 20:31] LABS: BUN/Creatinine Ratio 25.2; Bilirubin, Total 0.4 mg/dL (0.2-1.0); Total Protein 6.5 g/dL (6.4-8.2); Uric Acid 10.5 mg/dL (2.6-6.0)
--- NOTE | 2019-12-06 21:03 | NUR ---
RUTHANN ARRYOO FOR LAB RESULTS
--- NOTE | 2019-12-06 21:30 | NUR ---
REMOVED CVC: SUTURES REMOVED. TIP INTACT. HEMOSTASIS ACHIEVED.
[2019-12-06] MEDS: ATORVASTATIN 20 MG TAB PO SCH (21:32)
[2019-12-06] MEDS: ALLOPURINOL 100 MG TAB PO SCH (21:32)
--- NOTE | 2019-12-06 21:44 | NUR ---
REMOVED PIV TO LEFT CHEST: TIP INTACT. HEMOSTASIS ACHIEVED
--- NOTE | 2019-12-06 21:57 | NUR ---
SPOKE WITH DR. ARROYO: NOTIFIED OF LAB RESULTS. ORDERS FOR 60 MEQ KCL IVPB NOW. 40 MG LASIX X1 DOSE TOMORROW AM, WITH 20 MEQ KCL. ORDERS READBACK AND VERIFIED
--- NOTE | 2019-12-06 21:57 | NUR ---
REPORT CALLED TO LAMBERTO MACE
[2019-12-06] MEDS ORDERED: POTASSIUM CHL 20MEQ/100ML 100 ML IV ONE (22:00)
--- NOTE | 2019-12-06 22:37 | NUR ---
PATIENT TRANSFERRED TO [facility] WITH MADAY ROBERTS RN, AND FEMI CCT: ALL BELONGINGS TRANSFERRED WITH PATIENT
--- NOTE | 2019-12-06 22:40 | NUR ---
Opening note Assumed care of patient, patient was transferred from ICU after sbar received from Jacki. Bed is locked in lowest position, side rails up x2. No sob or distress noted. Will continue to monitor q1hr and PRN.
[2019-12-06] MEDS: ACETAMINOPHEN 325 MG TAB PO PRN (22:57)
--- NOTE | 2019-12-06 22:57 | NUR ---
Pain Patient is stating she has chronic back pain. Patient is requesting Tylenol at this time. Will reassess and continue to monitor patient.
[2019-12-07] MEDS: HYDROcodone-ACET 10/325MG TAB PO PRN ×4 (00:42→22:38)
[2019-12-07] MEDS: POTASSIUM CHL 20MEQ/100ML 100 ML IV SCH ×2 (01:11→06:01)
[2019-12-07 05:00] VITALS: BP 149/83
[2019-12-07] MEDS: InsuLIN REG 1unit/0.01ml Soln (100units/ml) SC SCH ×4 (06:26→21:07)
[2019-12-07] MEDS: ACCU-CHEK COMFORT CURVE STRIP VI SCH ×4 (06:26→20:57)
[2019-12-07 06:43] LABS: Basophils # (auto) 0 10 ^3/uL (0-0.2); Basophils % (auto) 0.6 % (0.0-2.0); Eosinophils # (auto) 0.1 10 ^3/uL (0-0.8); Eosinophils % (auto) 2.6 % (0.0-7.0); Hematocrit 26.7 % (36.0-46.0); Hemoglobin 9.2 g/dL (12.2-16.2); Lymphocytes # (auto) 0.4 10 ^3/uL (0.4-5.4); Lymphocytes % (auto) 10.4 % (10.0-50.0); Mean Corpuscular Hemoglobin 30.8 pg (28.0-32.0); Mean Corpuscular Hgb Conc. 34.3 g/dL (32.0-36.0); Mean Corpuscular Volume 89.6 fL (80.0-100.0); Monocytes # (auto) 0.3 10 ^3/uL (0-1.3); Monocytes % (auto) 10.1 % (0.0-12.0); Neutrophils # (auto) 2.6 10 ^3/uL (1.6-8.6); Neutrophils % (auto) 76.3 % (37.0-80.0); Nucleated Red Blood Cells % 0.1 %; Platelet Count (auto) 204 10^3/uL (140-450); Red Blood Cells 2.98 10^6/uL (4.0-5.20); Red Cell Distribution Width 15.2 % (11.8-14.3); White Blood Cell 3.5 10^3/uL (4.4-10.8)
[2019-12-07 06:59] LABS: Potassium 3.4 mmol/L (3.5-5.1)
[2019-12-07 07:12] LABS: Albumin 3.1 g/dL (3.4-5.0); BUN/Creatinine Ratio 27.3; Bilirubin, Total 0.5 mg/dL (0.2-1.0); Calcium 8.3 mg/dL (8.5-10.1); Total Protein 6.2 g/dL (6.4-8.2)
--- NOTE | 2019-12-07 07:31 | NUR ---
ClOSING NOTE Endorsed care to day shift RN. NO SOB OR DISTRESS NOTED.
[2019-12-07] MEDS: cefTRIAXone 1GM/50ML D5W 50 ML IV SCH (08:51)
[2019-12-07] MEDS: ASPirin-EC 81 mg tab PO SCH (08:53)
[2019-12-07] MEDS: ALLOPURINOL 100 MG TAB PO SCH ×2 (08:53→20:57)
[2019-12-07] MEDS: PANTOPRAZOLE 40 MG/10 ML VIAL INJ IV SCH (08:53)
[2019-12-07] MEDS: SERTRALINE HCL 50 MG TAB PO SCH (08:54)
[2019-12-07] MEDS: amLODIPine BESYLATE 5 MG TAB PO SCH (08:54)
[2019-12-07 09:00] VITALS: BP 169/98
[2019-12-07] MEDS ORDERED: FUROSEMIDE 20 MG TAB PO ONE (10:00)
[2019-12-07] MEDS ORDERED: POTASSIUM CHL 20 Meq TABLET PO ONE (10:00)
--- NOTE | 2019-12-07 12:15 | NUR ---
CALLED PHARMACY FOR PATIENTS SCHEDULE FERRLECIT. PER PHARMACY THEY ACCIDENTLY SENT IT TO ICU AND WILL RESEND IT UP.
[2019-12-07 13:00] VITALS: BP 159/94
--- NOTE | 2019-12-07 13:15 | NUR ---
RECEIVED FERRLECIT FROM PHARMACY.
[2019-12-07] MEDS: SODIUM FERR GLUC 62.5MG/5ML 125 MG in SODIUM CHL 0.9% 100 ML IV SCH (13:16)
[2019-12-07 17:00] VITALS: BP 158/89
[2019-12-07] MEDS: PROMETHAZINE HCL 25 MG/ML 1ML IV PRN (19:04)
--- NOTE | 2019-12-07 19:10 | NUR ---
Opening note Assumed care of patient, patient is alert and orientated x4 no sob or distress noted. Bed is locked in lowest position, side rails up x2. POC reviewed. No questions at this time. Will continue to monitor q1hr and PRN.
[2019-12-07] MEDS: ACETAMINOPHEN 325 MG TAB PO PRN (19:46)
[2019-12-07] MEDS ORDERED: POTASSIUM EFFERVESENT TAB 25 MEQ PO ONE (20:15)
[2019-12-07] MEDS ORDERED: predniSONE 20 MG TAB PO ONE (20:30)
--- NOTE | 2019-12-07 20:30 | NUR ---
DR Solis at bedside Dr Dona Solis at bedside. New orders received and verified. Will follow through with new orders. Discussed patients possible discharge tomorrow after AM nurse calls for nephrology, cardiology and rheumatology. Will let AM nurse in the morning. Patient wanted sleeping pill. Doctor ordered Benadryl. Patients Blood pressure 157/105. dr Solis made aware and said it was ok. No new orders. Patient is not able to chew her food due to dentures and mouth being a little sore. New orders to switch to a soft mechanical diet. Will follow through with all new orders and continue to monitor the patient.
[2019-12-07] MEDS: ATORVASTATIN 20 MG TAB PO SCH (20:57)
[2019-12-07] MEDS ORDERED: diphenhdrAMINE HCL 25 MG CAP PO ONE (21:00)
[2019-12-07 23:33] VITALS: BP 157/105
[2019-12-08] MEDS: HYDROcodone-ACET 10/325MG TAB PO PRN ×2 (05:14→11:22)
[2019-12-08 05:25] VITALS: BP 159/89
--- NOTE | 2019-12-08 06:20 | NUR ---
Dr Whiting at bedside Mortgage Coordinator is at bedside talking with patient regarding her Gout. No new orders at this time. Will continue to monitor.
[2019-12-08] MEDS: ACCU-CHEK COMFORT CURVE STRIP VI SCH ×2 (06:23→11:44)
[2019-12-08 06:26] LABS: Basophils # (auto) 0 10 ^3/uL (0-0.2); Basophils % (auto) 0.1 % (0.0-2.0); Eosinophils # (auto) 0 10 ^3/uL (0-0.8); Eosinophils % (auto) 0.2 % (0.0-7.0); Hematocrit 32.3 % (36.0-46.0); Hemoglobin 10.9 g/dL (12.2-16.2); Lymphocytes # (auto) 0.2 10 ^3/uL (0.4-5.4); Mean Corpuscular Hemoglobin 30.9 pg (28.0-32.0); Mean Corpuscular Hgb Conc. 33.8 g/dL (32.0-36.0); Mean Corpuscular Volume 91.3 fL (80.0-100.0); Monocytes # (auto) 0.1 10 ^3/uL (0-1.3); Monocytes % (auto) 1.9 % (0.0-12.0); Neutrophils % (auto) 92.8 % (37.0-80.0); Nucleated Red Blood Cells % 0.1 %; Platelet Count (auto) 213 10^3/uL (140-450); Red Blood Cells 3.54 10^6/uL (4.0-5.20); Red Cell Distribution Width 15.1 % (11.8-14.3); White Blood Cell 3.3 10^3/uL (4.4-10.8)
[2019-12-08] MEDS: InsuLIN REG 1unit/0.01ml Soln (100units/ml) SC SCH ×2 (06:26→12:03)
[2019-12-08 06:46] LABS: Albumin 3.7 g/dL (3.4-5.0); Calcium 9.2 mg/dL (8.5-10.1)
[2019-12-08 06:50] LABS: BUN/Creatinine Ratio 23.5; Bilirubin, Total 0.6 mg/dL (0.2-1.0); Total Protein 7.3 g/dL (6.4-8.2)
--- NOTE | 2019-12-08 07:53 | NUR ---
Closing note Endorsed care to day shift RN. No sob or distress noted.
[2019-12-08 09:00] VITALS: BP 156/99
[2019-12-08] MEDS: cefTRIAXone 1GM/50ML D5W 50 ML IV SCH ×2 (09:57→11:22)
--- NOTE | 2019-12-08 10:50 | NUR ---
PT REPORTS THAT SHE HAS BEEN WAKING FINE AND DOES NOT NEED P.T. INTERVENTION ANYMORE. GOALS MET.
[2019-12-08] MEDS: PANTOPRAZOLE 40 MG/10 ML VIAL INJ IV SCH (11:21)
[2019-12-08] MEDS: ASPirin-EC 81 mg tab PO SCH (11:22)
[2019-12-08] MEDS: ALLOPURINOL 100 MG TAB PO SCH (11:22)
[2019-12-08] MEDS: SERTRALINE HCL 50 MG TAB PO SCH (11:22)
[2019-12-08] MEDS: amLODIPine BESYLATE 5 MG TAB PO SCH (11:30)
[2019-12-08] MEDS: SODIUM FERR GLUC 62.5MG/5ML 125 MG in SODIUM CHL 0.9% 100 ML IV SCH (11:45)
--- NOTE | 2019-12-08 11:45 | NUR ---
GARCIA REMOVED PATIENT TOLERATED WELL.
[2019-12-08] MEDS ORDERED: AMLO5TAB15 PO (11:57)
[2019-12-08] MEDS ORDERED: ASPI-543 PO (11:57)
[2019-12-08 13:00] VITALS: BP 161/97
--- NOTE | 2019-12-08 14:45 | NUR ---
assessment Patient is a 74 year old female who is alert and oriented. Patients cognitive abilities are intact. Prior to admission patient lived home with her Cl and functioned independently. Patient informed me she is able to care for her own ADLs. Per patient she will return home to her prior living arrangements post discharge and family will transport her home. Patients PCP is Dr Cyndee Patel. Patient has a fww and wheelchair for home use, but does not need to use them. Patient has no safety concerns regarding returning home on discharge. Patient has a ss consult for fww and home health safety evaluation. Patient does not need the fww, already has one. Patient agrees to home health safety. MD order has been sent to [facility]. Per Pippa at [facility] she has accepted patient for service within 48 hours of discharge. MD order has also been sent to [facility] for auth. I informed patient she has a right to speak to a social and human services assistant regarding all care. I informed patient she has a right to participate in any and all discharge planning. Patient does not have a POA and advanced directive. I have offered patient information on POA and advanced directives. I informed the patient the advantages and benefits of having an Advanced Directive. Patient verbalized understanding and agreed to discharge plan. Addendum: 12/08/19 at 1448 by Ana MELENDEZ Amended: Links added.
[2019-12-08 15:45] VITALS: BP 161/97
[2019-12-08 17:00] VITALS: BP 161/97
--- NOTE | 2019-12-08 17:00 | NUR ---
PATIENT REFUSING MRSA SWAB, PATIENT WAS ADMITTED TO ICU ON ADMISSION 12/02 PATIENT HAD MRSA SWAB 12/03- NEGATIVE. PATIENT REFUSING ANOTHER ONE TO BE DONE. EDUCATED PATIENT.
--- NOTE | 2019-12-08 17:34 | NUR ---
Discharge instructions given as ordered. Encourage to follow up with PMD as instructed. All questions and concerns addressed. Patient verbalized understanding. Medication reconciliation form completed and copy given to patient. No Home medications held in Pharmacy returned to patient, and no needed vaccines given. IV removed with catheter intact, pressure dressing applied. Telemetry unit returned to ICU. Patient taken to vehicle via wheelchair with all personal belongings, accompanied by staff and family member. No distress noted at time of departure.
== END 2019-12-08 17:30 | disposition home health service (06) | DRG 70 ==
LOC: ER 10:59 → EDBD 10:59 → OVERFLOW 11:00 → ICU WEST 12-04 16:21 → TELE-WESTW 12-06 22:38
PROVIDERS: ADMIT Hospitalist; ATTEND Hospitalist
PROC: 02HV33Z Insertion of Infusion Device into Superior Vena Cava, Percutaneous Approach (ICD-10-PCS; principal; 2019-12-04)
DX: G93.49 Other encephalopathy (principal); N17.0 Acute kidney failure with tubular necrosis; E87.2 Acidosis; I48.20 Chronic atrial fibrillation, unspecified; I50.30 Unspecified diastolic (congestive) heart failure; N13.6 Pyonephrosis; I13.0 Hypertensive heart and chronic kidney disease with heart failure and stage 1 through stage 4 chronic kidney disease, or unspecified chronic kidney disease; E87.5 Hyperkalemia; E11.21 Type 2 diabetes mellitus with diabetic nephropathy; E11.22 Type 2 diabetes mellitus with diabetic chronic kidney disease; D63.1 Anemia in chronic kidney disease; I25.10 Atherosclerotic heart disease of native coronary artery without angina pectoris; I35.0 Nonrheumatic aortic (valve) stenosis; E83.51 Hypocalcemia; N18.30 Chronic kidney disease, stage 3 unspecified; B96.20 Unspecified Escherichia coli [E. coli] as the cause of diseases classified elsewhere; M54.5 Low back pain; E78.5 Hyperlipidemia, unspecified; E83.42 Hypomagnesemia; M10.9 Gout, unspecified; E87.6 Hypokalemia; F32.9 Major depressive disorder, single episode, unspecified; G89.29 Other chronic pain; Z51.81 Encounter for therapeutic drug level monitoring; Z79.01 Long term (current) use of anticoagulants; Z79.4 Long term (current) use of insulin; Z79.02 Long term (current) use of antithrombotics/antiplatelets; Z82.49 Family history of ischemic heart disease and other diseases of the circulatory system; Z83.3 Family history of diabetes mellitus; Z90.710 Acquired absence of both cervix and uterus; Z95.1 Presence of aortocoronary bypass graft
CPT/HCPCS: 36415; 70450; 71045; 76775; 80048; 80053; 81001; 82010; 82140; 82570; 82962; 83036; 83605; 83735; 83880; 84132; 84156; 84300; 84484; 84550; 85007; 85025; 85027; 85610; 85730; 87040; 87081; 87086; 87088; 87186; 93005; 93306; 96365; 96367; 96375; 99291; C9113; G0378; J0610; J0696; J1756; J1815; J3480